=== PATIENT | female | born 1945 | race Caucasian/White ===

== ENCOUNTER 2022-04-04 18:23 | Observation (INO) | payer OTHER, MEDICAID, SELFPAY ==
[2022-04-04] VITALS (18 sets, daily range): BP systolic 138–186; BP diastolic 68–91; PULSE 49–61; RESP 17–18; TEMP 36.4–37; O2SAT 93–100; BMI 28.6; BMI 27.1
--- NOTE | 2022-04-04 18:30 | DI.RAD.S_ITS ---
PROCEDURE: XR CHEST 1V INDICATIONS: pain TECHNIQUE: One view of the chest was acquired. COMPARISON: None. FINDINGS: Surgical changes and devices: Bilateral breast implants Lungs and pleura: Lungs are clear. No pleural effusions or pneumothorax. Mediastinum: Mediastinal contours appear normal. Heart size is normal. Bones and chest wall: No suspicious bony lesions. Overlying soft tissues appear unremarkable. IMPRESSION: No acute cardiopulmonary abnormality. Dictated by: Tino Lovelace M.D. on 04/04/2022 at 19:14 Approved by: Tino Lovelace M.D. on 04/04/2022 at 19:15
[2022-04-04 18:44] LABS: Add Manual Diff / Slide Review NO; Basophils Absolute Auto 0 /uL (0-100); Basophils Percent Auto 0.7 % (0-2); Eosinophils Absolute Auto 100 /uL (0-450); Eosinophils Percent Auto 2.2 % (2-4); Hematocrit 39.7 % (36-46); Hemoglobin 13.7 g/dL (12.0-16.0); Lymphocytes Absolute Auto 2000 /uL (1100-4500); Lymphocytes Percent Auto 32.1 % (25-40); Mean Corpuscular HGB Conc 34.6 % (30-36); Mean Corpuscular Hemoglobin 33.1 PG (26-34); Mean Corpuscular Volume 95.8 fL (80-100); Monocytes Absolute Auto 500 /uL (0-900); Monocytes Percent Auto 7.9 % (3-14); Neutrophils Absolute Auto 3500 /uL (1500-7000); Neutrophils Percent Auto 57.1 % (50-75); Platelet Count 242 X10^3/uL (150-400); Red Blood Cell Count 4.14 X10^6/uL (4.0-5.2); Red Cell Distribution Width 13.2 % (11.6-14.8); White Blood Cell Count 6.2 X10^3/uL (4.5-11.0)
[2022-04-04 18:55] LABS: Lactate (Lactic Acid) 1.1 mmol/L (0.7-2.1)
--- NOTE | 2022-04-04 18:55 | ED.RECABL ---
HPI - Recheck/Abnormal Lab/Rx General Chief Complaint: Recheck/Abnormal Lab/Rx Stated Complaint: abd pain Time Seen by Provider: 04/04/22 18:29 Source: EMS Mode of arrival: EMS History of Present Illness HPI narrative: 76-year-old female former smoker history of dementia and arthritis presents by EMS for evaluation of generalized pain. She is a very poor historian and contributes very little, however family reported to the medics that she has arthritis and they fear that her pain is not being controlled. She denies chest pain or shortness of breath. She denies any abdominal pain but states that her arms and legs hurt all over. She denies any injury or trauma but, as stated that that is about all she can contribute. Sister in law arrives a bit after patient arrival and contributes more to the story now telling us that the pain started in her low back after a ground fall few days ago and is sufficient to prevent her from getting out bed. She is not lost any control bowel or bladder. Related Data Home Medications Medication Instructions Recorded Confirmed furosemide 40 mg tablet (Lasix) 40 mg PO DAILY 04/04/22 04/04/22 ibuprofen 600 mg tablet 600 mg PO Q6H PRN Pain (Scale 04/04/22 04/04/22 Score 4-6) meloxicam 7.5 mg tablet 7.5 mg PO BID 04/04/22 04/04/22 potassium chloride 10 mEq 10 meq PO DAILY 04/04/22 04/04/22 tablet,extended release(part/cryst) vitamin B complex (B 1 tab PO DAILY 04/04/22 04/04/22 Complex-Vitamin B12 tablet) Allergies Allergy/AdvReac Type Severity Reaction Status Date / Time No Known Drug Allergies Allergy Verified 04/04/22 18:31 Review of Systems Review of Systems ROS Unobtainable: Unobtainable due to mental status/LOC Patient History Family History Mother Murder Sister Early onset Alzheimer's dementia Father Myocardial infarction Sister Alive and well Social History household members: family Smoking Status: Former smoker alcohol intake: never Smoking Status: Former smoker Substance Use Type: does not use Exam Narrative Exam Narrative: GENERAL: [76] year old patient appears stated age. Well-developed patient, in mild distress. Pleasantly confused (GCS 14) very poor historian, at baseline per family HEAD: Atraumatic. Normocephalic. EYES: Pupils equal round and reactive. Extraocular motions intact. No scleral icterus. No injection or drainage. ENT: Nose without bleeding, purulent drainage. Throat without erythema, tonsillar hypertrophy or exudate. Airway patent. NECK: Trachea midline. Non tender CARDIOVASCULAR: Regular rate and rhythm without murmurs, gallops, or rubs. RESPIRATORY: Clear to auscultation. Breath sounds equal bilaterally. No wheezes, rales, or rhonchi. GASTROINTESTINAL: Abdomen soft, non-tender, nondistended. EXTREMITIES: No edema or joint tenderness. BACK: twister frame tender but free of any obvious external abnormalities. Patient exam notes decreased range of motion and muscle spasm, but no CVA tenderness, or vertebral point tenderness. There are no symptoms of cauda equina such as saddle anesthesia, and decreased reflexes, decreased sensation or strength. NEURO: Cranial nerves 2-12 grossly intact SKIN: No rash or erythema of visible areas Initial Vital Signs Initial Vital Signs: Vital Signs Temperature 98.6 F 04/04/22 18:24 Pulse Rate 59 L 04/04/22 18:24 Respiratory Rate 18 04/04/22 18:24 Blood Pressure 149/73 H 04/04/22 18:24 Pulse Oximetry 98 04/04/22 18:24 Oxygen Delivery Method 04/04/22 18:24 Course Orders Ordered: ED Orders 04/04/22 21:41 COVID19 -Nasal RAPID/Pre-Proc Stat Acetaminophen (Acetaminophen 325 Mg Tablet) 650 mg PO Q6H [facility] Last Admin: 04/05/22 04:09 Dose: 650 mg Documented By: Admin: 04/04/22 23:48 Dose: 650 mg Documented By: JARVIS Hydrocodone Bitart/Acetaminophen (Hydrocodone/Acet 5/325 Tablet) 1 tab PO Q6HR PRN PRN Reason: Pain, Severe (7-10) Last Admin: 04/04/22 23:47 Dose: 1 tab Documented By: JARVIS Docusate Sodium (Docusate 100 Mg Capsule) 100 mg PO BID [facility] Last Admin: 04/04/22 23:47 Dose: 100 mg Documented By: JARVIS Enoxaparin Sodium (Enoxaparin 40 Mg/0.4 Ml Syringe) 40 mg SUBCUT DAILY [facility] Sodium Chloride (Normal Saline 0.9%) 1,000 mls @ 100 mls/hr IV CONT NAHID Last Infusion: 04/05/22 03:19 Dose: 100 mls/hr Documented By: Infusion: 04/04/22 23:47 Dose: 0 mls/hr Documented By: Admin: 04/04/22 23:46 Dose: 100 mls/hr Documented By: JARVIS Naloxone HCl (Naloxone 0.4 Mg/Ml Vial) 0.2 mg IV Q2MIN PRN PRN Reason: Opiate Reversal Ondansetron HCl (Ondansetron 4 Mg/2 Ml Inj) 4 mg IV Q4HR PRN PRN Reason: Nausea And Vomiting Tramadol HCl (Tramadol 50 Mg Tablet) 50 mg PO TID PRN PRN Reason: Pain, Moderate (4-6) Last Admin: 04/05/22 05:23 Dose: 50 mg Documented By: JARVIS Discontinued Medications Sodium Chloride (Normal Saline 0.9%) 1,000 mls @ 1,000 mls/hr IV BOLUS ONE Stop: 04/04/22 19:28 Last Infusion: 04/04/22 21:12 Dose: 0 mls/hr Documented By: Admin: 04/04/22 19:25 Dose: 1,000 mls/hr Documented By: STEPHANE Potassium Chloride (Potassium Chloride 20 Meq Tab) 40 meq PO NOW ONE Stop: 04/05/22 01:23 Last Admin: 04/05/22 02:21 Dose: 40 meq Documented By: JARVIS Consultations Consultation #1: Discussed with on-call orthopedist (Dr. Dwyer), she has reviewed images, suggests no obvious surgical need, happy to be involved in consultation, Dr. Arzola is in town Consultation #2: hospitalist happy to accept Vital Signs Vital signs: Vital Signs - 8 hr 04/04/22 18:24 04/04/22 19:28 04/04/22 19:29 Temperature 98.6 F Pulse Rate 59 L Respiratory Rate 18 Blood Pressure 149/73 H 184/77 H Pulse Oximetry 98 99 Oxygen Delivery Method Room Air Room Air 04/04/22 19:29 04/04/22 19:30 04/04/22 20:03 Temperature Pulse Rate 53 L 53 L 54 L Respiratory Rate Blood Pressure Pulse Oximetry 99 99 100 Oxygen Delivery Method Room Air Room Air 04/04/22 20:30 04/04/22 20:56 04/04/22 20:56 Temperature Pulse Rate 58 L Respiratory Rate Blood Pressure 186/91 H Pulse Oximetry 100 93 Oxygen Delivery Method Room Air Room Air 04/04/22 21:00 04/04/22 21:01 04/04/22 21:01 Temperature Pulse Rate 49 L 50 L Respiratory Rate Blood Pressure 179/72 H Pulse Oximetry 100 100 Oxygen Delivery Method Room Air Room Air MDM - Recheck/Abnormal Lab/Rx Lab Data 04/04/22 18:38 04/04/22 18:38 Labs: Lab Results 04/04/22 04/04/22 04/04/22 Range/Units 18:38 18:38 18:38 WBC 6.2 (4.5-11.0) X10^3/uL RBC 4.14 (4.0-5.2) X10^6/uL Hgb 13.7 (12.0-16.0) g/dL Hct 39.7 (36-46) % MCV 95.8 (80-100) fL MCH 33.1 (26-34) PG MCHC 34.6 (30-36) % RDW 13.2 (11.6-14.8) % Plt Count 242 (150-400) X10^3/uL Neut % (Auto) 57.1 (50-75) % Lymph % (Auto) 32.1 (25-40) % Blair % (Auto) 7.9 (3-14) % Eos % (Auto) 2.2 (2-4) % Baso % (Auto) 0.7 (0-2) % Neut # (Auto) 3500 (6301-8268) /uL Lymph # (Auto) 2000 (6593-0480) /uL Blair # (Auto) 500 (0-900) /uL Eos # (Auto) 100 (0-450) /uL Baso # (Auto) 0 (0-100) /uL PT (10.1-12.7) SECONDS INR (0.9-1.3) Sodium 141 (137-145) mmol/L Potassium 3.2 L (3.4-5.1) mmol/L Chloride 106 (98-107) mmol/L Carbon Dioxide 26 (22-32) mmol/L BUN 22 H (7-17) mg/dL Creatinine 1.00 (0.52-1.04) mg/dL Estimated GFR 58 L (>60) mL/min BUN/Creatinine Ratio 22.0 (6-22) Glucose 107 (80-110) mg/dL Lactate 1.1 (0.7-2.1) mmol/L Calcium 9.0 (8.4-10.2) mg/dL Magnesium 2.2 (1.6-2.3) mg/dL Total Bilirubin 1.0 (0.2-1.3) mg/dL AST 27 (14-36) IU/L ALT 19 (<35) IU/L Alkaline Phosphatase 117 (38-126) U/L Total Creatine Kinase 216 H (30-135) U/L CK-MB (CK-2) 1.45 (<2.37) ng/mL CK-MB (CK-2) Rel Index 0.7 L (1.5-5.0) % Troponin I < 0.012 (0.01-0.034) ng/mL NT-Pro-B Natriuret Pep 448 (<450) pg/mL Total Protein 7.5 (6.3-8.2) g/dL Albumin 4.0 (3.5-5.0) g/dL Globulin 3.5 (1.7-4.1) g/dL Albumin/Globulin Ratio 1.1 (1.0-2.8) Lipase 132 (23-300) U/L Urine RBC (0-5/HPF) Urine WBC (0-5/HPF) Ur Squamous Epith Cells (0-5/HPF) Amorphous Sediment Urine Bacteria (None) Ur Culture Indicated? SARS-CoV-2 (PCR) (Negative) 04/04/22 04/04/22 04/04/22 Range/Units 18:38 19:32 21:41 WBC (4.5-11.0) X10^3/uL RBC (4.0-5.2) X10^6/uL Hgb (12.0-16.0) g/dL Hct (36-46) % MCV (80-100) fL MCH (26-34) PG MCHC (30-36) % RDW (11.6-14.8) % Plt Count (150-400) X10^3/uL Neut % (Auto) (50-75) % Lymph % (Auto) (25-40) % Blair % (Auto) (3-14) % Eos % (Auto) (2-4) % Baso % (Auto) (0-2) % Neut # (Auto) (3495-8753) /uL Lymph # (Auto) (3288-8843) /uL Blair # (Auto) (0-900) /uL Eos # (Auto) (0-450) /uL Baso # (Auto) (0-100) /uL PT 11.9 (10.1-12.7) SECONDS INR 1.0 (0.9-1.3) Sodium (137-145) mmol/L Potassium (3.4-5.1) mmol/L Chloride (98-107) mmol/L Carbon Dioxide (22-32) mmol/L BUN (7-17) mg/dL Creatinine (0.52-1.04) mg/dL Estimated GFR (>60) mL/min BUN/Creatinine Ratio (6-22) Glucose (80-110) mg/dL Lactate (0.7-2.1) mmol/L Calcium (8.4-10.2) mg/dL Magnesium (1.6-2.3) mg/dL Total Bilirubin (0.2-1.3) mg/dL AST (14-36) IU/L ALT (<35) IU/L Alkaline Phosphatase (38-126) U/L Total Creatine Kinase (30-135) U/L CK-MB (CK-2) (<2.37) ng/mL CK-MB (CK-2) Rel Index (1.5-5.0) % Troponin I (0.01-0.034) ng/mL NT-Pro-B Natriuret Pep (<450) pg/mL Total Protein (6.3-8.2) g/dL Albumin (3.5-5.0) g/dL Globulin (1.7-4.1) g/dL Albumin/Globulin Ratio (1.0-2.8) Lipase (23-300) U/L Urine RBC None seen (0-5/HPF) Urine WBC None seen (0-5/HPF) Ur Squamous Epith Cells 1-5 /hpf (0-5/HPF) Amorphous Sediment 1+ Urine Bacteria None seen (None) Ur Culture Indicated? Cult not indicated SARS-CoV-2 (PCR) Negative (Negative) Urine Dip Bedside Urine Glucose Negative Bedside Urine Bilirubin - Negative Bedside Urine Ketone +/- 5 Urine Specific Mckenzie 1.015 Bedside Urine Occult Blood - Negative Bedside Urine pH 7.0 Bedside Urine Protein +/- 15 Bedside Urine Urobilinogen - Negative Bedside Urine Nitrite - Negative Bedside Urine Leukocytes - Negative Esterase MDM Narrative Medical decision making narrative: CC: 76-year-old female with multiple falls and intractable back pain Complicating co-morbidities: Age Data collected from: Patient and independent history Medical records reviewed: No prior notes Differential considered, but not limited to: Lumbar fracture, hip fracture, pelvic fracture versus other Exam documented above, pertinent findings include: Low back pain, no saddle anesthesia, no measurable lower extremity weakness, no depressed reflexes, no obvious shortening or rotation over Kathy Lab Test results independently reviewed as above. Pertinent findings: No significant lab abnormalities requiring intervention Imaging studies independently reviewed: Lumbar fracture with 65-70% loss of height at L2 with some bony fragments causing severe canal stenosis Consultations: Ortho (Reymundo) and Hospitalist - see details above Treatments: Pain control Patient with multiple falls and newly discovered lumbar fracture with height loss and severe central stenosis with intractable pain in the absence of saddle anesthesia, lower extremity weakness numbness, tingling, decreased reflexes or other evidence of need for emergent neurosurgical intervention. Patient lives at home with family and has become a significant risk to her own health as evidenced by her multiple falls and now severe lumbar fracture. Family has been unable to get her out of bed or help keep her comfortable, they have their own medical problems and are at risk to become injured themselves. Patient's pain is unable to be controlled and she will require hospitalization for pain management, likely PT evaluation, more in-depth orthopedic evaluation for stabilization and possible sniff placement Discharge Plan Departure Patient Disposition: Admitted as Observation Clinical Impression: Lumbar compression fracture Admit Date/Time: 04/04/22 21:53 Admit Provider: Sofía Castro
[2022-04-04 18:56] LABS: Alanine Aminotransferase 19 IU/L (<35); Albumin Globulin Ratio 1.1 (1.0-2.8); Alkaline Phosphatase 117 U/L (38-126); Aspartate Aminotransferase 27 IU/L (14-36); Blood Urea Nitrogen 22 mg/dL (7-17); Carbon Dioxide 26 mmol/L (22-32); Chloride 106 mmol/L (98-107); Creatine Kinase 216 U/L (30-135); Estimated Glomerular Filt Rate 58 mL/min (>60); Globulin 3.5 g/dL (1.7-4.1); Glucose 107 mg/dL (80-110); HEMOLYSIS < 15 (0-50); Lipase 132 U/L (23-300); Magnesium 2.2 mg/dL (1.6-2.3); Potassium 3.2 mmol/L (3.4-5.1); Sodium 141 mmol/L (137-145); Total Protein 7.5 g/dL (6.3-8.2)
[2022-04-04 19:08] LABS: NT-proBNP (BNP-Adult 18+) 448 pg/mL (<450); Troponin I < 0.012 ng/mL (0.01-0.034)
[2022-04-04 19:11] LABS: CKMB % Relative Index 0.7 % (1.5-5.0); Creatine Kinase MB 1.45 ng/mL (<2.37)
[2022-04-04] MEDS: SODIUM CHLORIDE 0.9% 1,000 ML 1000 ML IV (19:25)
--- NOTE | 2022-04-04 19:47 | DI.CT.S_ITS ---
PROCEDURE: CT PEL WO CON INDICATIONS: fall with low back, left hip pain TECHNIQUE: Noncontrast 3 mm axial sections acquired through the bony pelvis, with coronal and sagittal reformatting. COMPARISON: [facility], CT, CT LUMBAR SPINE WO CON, 04/04/2022, 19:57. FINDINGS: Image quality: There is mild motion artifact Bones: No acute fracture or dislocation in the pelvis. There is mild to moderate joint space narrowing in the hips bilaterally with collar osteophytosis. There is mild superior endplate scalloping within the visualized L4 and L5 vertebral bodies. Moderate degenerative disc disease demonstrated at L5-S1 as well as moderate facet arthropathy in the lower lumbar spine. Soft tissues: No discrete hematoma collections. No intraperitoneal free fluid within the visualized pelvis. There are bilateral cysts within the pelvis measuring up to 3.7 cm on the left and 2.9 cm on the right. IMPRESSION: 1. No acute fracture or dislocation in the pelvis. 2. Mild to moderate degenerative changes in the hips bilaterally. 3. Bilateral nonspecific cysts within the pelvis likely represent ovarian or paraovarian cysts. Dictated by: Trent Amaya M.D. on 04/04/2022 at 20:58 Approved by: Trent Amaya M.D. on 04/04/2022 at 21:01
--- NOTE | 2022-04-04 19:47 | DI.CT.S_ITS ---
PROCEDURE: CT LUMBAR SPINE WO CON INDICATIONS: fall with midline low back pain TECHNIQUE: Noncontrast 3 mm thick sections acquired from the T12 level to the sacrum. Sagittal and coronal reformats were constructed. For radiation dose reduction, the following was used: automated exposure control. COMPARISON: [facility], CT, CT PEL WO CON, 04/04/2022, 19:57. FINDINGS: Image quality: There is motion artifact limiting evaluation. Bones: There are 5 lumbar type vertebrae with a rudimentary rib on the right at L1. There is a compression fracture of the L3 vertebral body which appears acute or subacute with approximately 65-70% loss of height. There is associated ill-defined sclerosis throughout the L3 vertebral body. There is mild posterior displacement along the superior and inferior endplate with associated severe spinal canal narrowing at L3-L4. There are also mild superior endplate compression deformities of the T12 vertebral body with approximately 20% loss of height and the L2 vertebral body with approximately 40% loss of height. These also demonstrate slight posterior displacement along the superior endplates with associated moderate spinal canal narrowing at L1-L2 and mild narrowing at T11-T12. Mild superior endplate scalloping also demonstrated at L1, L4, and L5. There is multilevel degenerative disc disease throughout the lumbar spine including moderate degeneration at L5-S1 with endplate sclerosis and osteophytosis as well as vacuum disc phenomenon. Vacuum disc phenomenon also demonstrated at L3-L4. There is moderate facet arthropathy in the lower lumbar spine. Soft tissues: No retroperitoneal hematomas. There are bilateral cysts within the visualized pelvis, measuring up to 3.9 cm on the left and 2.7 cm on the right. Visualized aorta is normal in caliber. IMPRESSION: 1. Acute or subacute compression fracture of the L3 vertebral body with associated posterior displacement of fracture components and severe spinal canal narrowing at L3-L4. 2. Diffuse heterogeneous sclerosis within the L3 vertebral body may reflect sequelae of an acute compression fracture but an underlying sclerotic lesion cannot be excluded. Consider follow-up evaluation with MRI if clinically indicated. 3. Additional milder compression deformities throughout the lumbar spine as described including associated moderate spinal canal narrowing at L1-L2. 4. Multilevel degenerative disc disease most prominent at L5-S1 as well as moderate facet arthropathy in the lower lumbar spine. 5. Bilateral cysts within the visualized pelvis are nonspecific but may represent ovarian or paraovarian cysts. Dictated by: Trent Amaya M.D. on 04/04/2022 at 20:49 Approved by: Trent Amaya M.D. on 04/04/2022 at 20:58
[2022-04-04 20:31] LABS: Amorphous Sediment Urine 1+; Bacteria Urine None Seen; Culture Indicated Urine Cult Not Indicated; RBC Urine None Seen (0-5/HPF); Squamous Epithelial Cell Urine 1-5 /HPF (0-5/HPF); WBC Urine None Seen (0-5/HPF)
[2022-04-04 22:00] LABS: COVID19 -Nasal RAPID Negative (Negative)
[2022-04-04 22:19] LABS: Prothrombin Time 11.9 SECONDS (10.1-12.7)
--- NOTE | 2022-04-04 23:02 | PC.NURSE ---
Report given to Brandt SLAUGHTER on acute care floor. Patient is a fall risk with 3 falls the last couple of months, the last on was 6 days ago per report of [id number]. This was communicated to Brandt SLAUGHTER, the receiving nurse.
[2022-04-04] MEDS: SODIUM CHLORIDE 0.9% 1,000 ML 100 ML IV (23:46)
[2022-04-04] MEDS: HYDROCODONE/ACET 5/325 TABLET 1 TAB PO (23:47)
[2022-04-04] MEDS: DOCUSATE 100 MG CAPSULE PO (23:47)
[2022-04-04] MEDS: ACETAMINOPHEN 325 MG TABLET 650 MG PO (23:48)
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
[2022-04-05] MEDS: POTASSIUM CHLORIDE 20 MEQ TAB 40 MEQ PO ×2 (02:21→11:35)
[2022-04-05] MEDS: ACETAMINOPHEN 325 MG TABLET 650 MG PO ×4 (04:09→21:43)
[2022-04-05 04:33] VITALS: BP 128/69; PULSE 64; RESP 18; TEMP 36.6; O2SAT 97
[2022-04-05 04:50] LABS: Add Manual Diff / Slide Review NO; Basophils Absolute Auto 100 /uL (0-100); Basophils Percent Auto 0.8 % (0-2); Eosinophils Absolute Auto 200 /uL (0-450); Eosinophils Percent Auto 3.7 % (2-4); Hematocrit 36.7 % (36-46); Hemoglobin 12.6 g/dL (12.0-16.0); Lymphocytes Absolute Auto 2300 /uL (1100-4500); Mean Corpuscular HGB Conc 34.4 % (30-36); Mean Corpuscular Hemoglobin 33.5 PG (26-34); Mean Corpuscular Volume 97.3 fL (80-100); Monocytes Absolute Auto 500 /uL (0-900); Monocytes Percent Auto 7.8 % (3-14); Neutrophils Absolute Auto 3500 /uL (1500-7000); Neutrophils Percent Auto 52.7 % (50-75); Platelet Count 203 X10^3/uL (150-400); Red Blood Cell Count 3.77 X10^6/uL (4.0-5.2); Red Cell Distribution Width 12.9 % (11.6-14.8); White Blood Cell Count 6.6 X10^3/uL (4.5-11.0)
[2022-04-05 05:13] LABS: Alanine Aminotransferase 18 IU/L (<35); Albumin 3.4 g/dL (3.5-5.0); Albumin Globulin Ratio 1.1 (1.0-2.8); Alkaline Phosphatase 85 U/L (38-126); Aspartate Aminotransferase 28 IU/L (14-36); BUN Creatinine Ratio 24.4 (6-22); Bilirubin Total 0.8 mg/dL (0.2-1.3); Blood Urea Nitrogen 22 mg/dL (7-17); Calcium 8.2 mg/dL (8.4-10.2); Carbon Dioxide 25 mmol/L (22-32); Chloride 106 mmol/L (98-107); Estimated Glomerular Filt Rate > 60 mL/min (>60); Globulin 3.1 g/dL (1.7-4.1); Glucose 122 mg/dL (80-110); HEMOLYSIS < 15 (0-50); Magnesium 2.2 mg/dL (1.6-2.3); Potassium 3.1 mmol/L (3.4-5.1); Sodium 140 mmol/L (137-145); Total Protein 6.5 g/dL (6.3-8.2)
[2022-04-05] MEDS: TRAMADOL 50 MG TABLET PO (05:23)
--- NOTE | 2022-04-05 06:54 | P.CONS_ITS ---
History of Present Illness Consult details Date Patient Seen: 04/05/22 Time Patient Seen: 06:54 Chief complaint: abd pain Requesting provider: Pranay Plaza Narrative: 76-year-old female with history of homelessness and dementia now living with family here for the last couple months. Poor historian. Brought in today by family for back pain and family's inability to continually care for her due to their own serious medical conditions. States patient has not really been able to get out of bed for a few days. Patient states she thinks she has not gotten out of bed much for about a month and may have fallen about a month ago. ER and hospitalist notes from a family report believe a fall may have been a few days ago. Patient states she has lots of falls. She complains of soreness in her back but mostly a feeling of having to urinate but states she has trouble doing it but thinks she might be able to write now. She is unable to provide really any other history. Thinks she may have had compression fractures in her back before ?probably? can not give any details. States some numbness right around her right knee otherwise no numbness and tingling Meds Home Medications and Allergies Home Medications Medication Instructions Recorded Confirmed Type furosemide 40 mg tablet (Lasix) 40 mg PO DAILY 04/04/22 04/04/22 History ibuprofen 600 mg tablet 600 mg PO Q6H PRN Pain (Scale 04/04/22 04/04/22 History Score 4-6) meloxicam 7.5 mg tablet 7.5 mg PO BID 04/04/22 04/04/22 History potassium chloride 10 mEq 10 meq PO DAILY 04/04/22 04/04/22 History tablet,extended release(part/cryst) vitamin B complex (B 1 tab PO DAILY 04/04/22 04/04/22 History Complex-Vitamin B12 tablet) Allergies Allergy/AdvReac Type Severity Reaction Status Date / Time No Known Drug Allergies Allergy Verified 04/04/22 18:31 Review of Systems Review of Systems Narrative: No fevers or chills otherwise limited review of systems due to a poor historian. ROS: Yes unobtainable due to mental condition Exam Vital Signs (past 8 hours): - 04/04/22 23:00 04/04/22 23:01 04/04/22 23:08 Temperature 97.6 F Pulse Rate 59 L 54 L Respiratory Rate 17 Blood Pressure 154/68 H 169/71 H Pulse Oximetry 97 100 Oxygen Delivery Method Room Air Oxygen Flow Rate 0 04/05/22 04:33 Temperature 97.8 F Pulse Rate 64 Respiratory Rate 18 Blood Pressure 128/69 Pulse Oximetry 97 Oxygen Delivery Method Oxygen Flow Rate 0 Oxygen Delivery Method Room Air Oxygen Flow Rate 0 Narrative Exam Narrative: General exam alert oriented to person and place can not provide much history. Normocephalic atraumatic Heart regular rate and rhythm Breathing unlabored on room air Moving bilateral upper extremities without limitation no deformities. Normal strength wrist flexors wrist extensors biceps and triceps. Flexes and extends neck without pain. Spine exam. Mild tenderness around lower lumbar spine and paraspinal. No step- offs. No focal bruising or extreme pain. Patient is able to log roll herself in bed Lower extremities demonstrates normal strength quadriceps hamstrings gastrocs tibialis anterior and EHL. Complained of some numbness right around the kneecap on the right knee no focal nerve distribution. Otherwise sensation intact to light touch all distributions. Palpable pulses. Negative logroll. Objective Imaging CT scan pelvis: My impression: No hip fracture Radiologist's impression: IMPRESSION: 1. No acute fracture or dislocation in the pelvis. 2. Mild to moderate degenerative changes in the hips bilaterally. 3. Bilateral nonspecific cysts within the pelvis likely represent ovarian or paraovarian cysts. Dictated by: Trent Amaya M.D. on 04/04/2022 at 20:58 Approved by: Trent Amaya M.D. on 04/04/2022 at 21:[address]: My impression: Lumbar CT scan with L3 subacute vertebral body fracture greater than 50% height loss , canal stenosis, L5-S1 spondylosis Radiologist's impression: There is a compression fracture of the L3 vertebral body which appears acute or subacute with approximately 65-70% loss of height. There is associated ill-defined sclerosis throughout the L3 vertebral body. There is mild posterior displacement along the superior and inferior endplate with associated severe spinal canal narrowing at L3-L4. There are also mild superior endplate compression deformities of the T12 vertebral body with approximately 20% loss of height and the L2 vertebral body with approximately 40% loss of height. These also demonstrate slight posterior displacement along the superior endplates with associated moderate spinal canal narrowing at L1-L2 and mild narrowing at T11-T12. Mild superior endplate scalloping also demonstrated at L1, L4, and L5. There is multilevel degenerative disc disease throughout the lumbar spine including moderate degeneration at L5-S1 with endplate sclerosis and osteophytosis as well as vacuum disc phenomenon. Vacuum disc phenomenon also demonstrated at L3-L4. There is moderate facet arthropathy in the lower lumbar spine. 1. Acute or subacute compression fracture of the L3 vertebral body with associated posterior displacement of fracture components and severe spinal canal narrowing at L3- L4. 2. Diffuse heterogeneous sclerosis within the L3 vertebral body may reflect sequelae of an acute compression fracture but an underlying sclerotic lesion cannot be excluded. Consider follow-up evaluation with MRI if clinically indicated. 3. Additional milder compression deformities throughout the lumbar spine as described including associated moderate spinal canal narrowing at L1-L2. 4. Multilevel degenerative disc disease most prominent at L5-S1 as well as moderate facet arthropathy in the lower lumbar spine. 5. Bilateral cysts within the visualized pelvis are nonspecific but may represent ovarian or paraovarian cysts. Dictated by: Trent Amaya M.D. on 04/04/2022 at 20:49 Approved by: Trent Amaya M.D. on 04/04/2022 at 20:58 Soft Labs 04/05/22 04:05 04/05/22 04:05 Labs: Laboratory Results - last 24 hr 04/04/22 04/04/22 04/04/22 18:38 18:38 18:38 WBC 6.2 RBC 4.14 Hgb 13.7 Hct 39.7 MCV 95.8 MCH 33.1 MCHC 34.6 RDW 13.2 Plt Count 242 Neut % (Auto) 57.1 Lymph % (Auto) 32.1 [place] % (Auto) 7.9 Eos % (Auto) 2.2 Baso % (Auto) 0.7 Neut # (Auto) 3500 Lymph # (Auto) 2000 [place] # (Auto) 500 Eos # (Auto) 100 Baso # (Auto) 0 PT INR Sodium 141 Potassium 3.2 L Chloride 106 Carbon Dioxide 26 BUN 22 H Creatinine 1.00 Estimated GFR 58 L BUN/Creatinine Ratio 22.0 Glucose 107 Lactate 1.1 Calcium 9.0 Magnesium 2.2 Total Bilirubin 1.0 AST 27 ALT 19 Alkaline Phosphatase 117 Total Creatine Kinase 216 H CK-MB (CK-2) 1.45 CK-MB (CK-2) Rel Index 0.7 L Troponin I < 0.012 NT-Pro-B Natriuret Pep 448 Total Protein 7.5 Albumin 4.0 Globulin 3.5 Albumin/Globulin Ratio 1.1 Lipase 132 Urine RBC Urine WBC Ur Squamous Epith Cells Amorphous Sediment Urine Bacteria Ur Culture Indicated? SARS-CoV-2 (PCR) 04/04/22 04/04/22 04/04/22 18:38 19:32 21:41 WBC RBC Hgb Hct MCV MCH MCHC RDW Plt Count Neut % (Auto) Lymph % (Auto) [place] % (Auto) Eos % (Auto) Baso % (Auto) Neut # (Auto) Lymph # (Auto) [place] # (Auto) Eos # (Auto) Baso # (Auto) PT 11.9 INR 1.0 Sodium Potassium Chloride Carbon Dioxide BUN Creatinine Estimated GFR BUN/Creatinine Ratio Glucose Lactate Calcium Magnesium Total Bilirubin AST ALT Alkaline Phosphatase Total Creatine Kinase CK-MB (CK-2) CK-MB (CK-2) Rel Index Troponin I NT-Pro-B Natriuret Pep Total Protein Albumin Globulin Albumin/Globulin Ratio Lipase Urine RBC None seen Urine WBC None seen Ur Squamous Epith Cells 1-5 /hpf Amorphous Sediment 1+ Urine Bacteria None seen Ur Culture Indicated? Cult not indicated SARS-CoV-2 (PCR) Negative 04/05/22 04/05/22 04:05 04:05 WBC 6.6 RBC 3.77 L Hgb 12.6 Hct 36.7 MCV 97.3 MCH 33.5 MCHC 34.4 RDW 12.9 Plt Count 203 Neut % (Auto) 52.7 Lymph % (Auto) 35.0 [place] % (Auto) 7.8 Eos % (Auto) 3.7 Baso % (Auto) 0.8 Neut # (Auto) 3500 Lymph # (Auto) 2300 [place] # (Auto) 500 Eos # (Auto) 200 Baso # (Auto) 100 PT INR Sodium 140 Potassium 3.1 L Chloride 106 Carbon Dioxide 25 BUN 22 H Creatinine 0.90 Estimated GFR > 60 BUN/Creatinine Ratio 24.4 H Glucose 122 H Lactate Calcium 8.2 L Magnesium 2.2 Total Bilirubin 0.8 AST 28 ALT 18 Alkaline Phosphatase 85 Total Creatine Kinase CK-MB (CK-2) CK-MB (CK-2) Rel Index Troponin I NT-Pro-B Natriuret Pep Total Protein 6.5 Albumin 3.4 L Globulin 3.1 Albumin/Globulin Ratio 1.1 Lipase Urine RBC Urine WBC Ur Squamous Epith Cells Amorphous Sediment Urine Bacteria Ur Culture Indicated? SARS-CoV-2 (PCR) [facility] Family History Mother Murder Sister Early onset Alzheimer's dementia Father Myocardial infarction Sister Alive and well Social History household members: family Tobacco & Substance Use Smoking Status: Former smoker alcohol intake: never Assessment & Plan Assessment and plan (1) Lumbar stenosis: Status: Acute (2) Lumbar compression fracture: Status: Acute Plan Acute or subacute L3 compression fracture spinal stenosis. No focal neurologic symptoms on examination demonstrates good sensory and motor strength. Does have a sensation of having to urinate no complaints of incontinence. Has been unable to be mobilized anxious and vertebral body likely reflect compression fracture. Recommend MRI to evaluate spinal stenosis, out of bed as tolerated, LSO for comfort if unable to be mobilized by PT alone. Avoid bending lifting or twisting. Pain management COVID-19 COVID-19 status: Negative Time Spent With Patient Time with patient: less than 30 minutes Critical Care time: I spent a total of [] minutes of critical care time on this patient's care today; this time is exclusive of procedural time.
--- NOTE | 2022-04-05 07:11 | DI.MRI.S_ITS ---
PROCEDURE: MR LUMBAR SPINE WO CON INDICATIONS: L3 fracture, spinal stenosis TECHNIQUE: Noncontrast sagittal T1 spin echo and T2 fast echo, sagittal STIR, and T2 fast spin echo through the lumbar spine. In cases with scoliosis, additional coronal T2 fast spin echo may be performed. COMPARISON: [facility], CT, CT LUMBAR SPINE WO CON, 04/04/2022, 19:57. FINDINGS: Image quality: Excellent. Alignment and Curvature: There is normal bony alignment. Bone Marrow: Acute moderate L3 compression fracture with approximately 65% midportion vertebral body height loss. Mild inferior bony retropulsion. Acute mild superior endplate compression fracture of L3 with approximately 20% midportion vertebral body height loss. Old compressions of T12 and L2. Spinal Cord: Conus medullaris terminates at the L1-L2 level. Visualized cord demonstrates normal signal and size. Paraspinous Soft Tissues: No paravertebral masses. T12-L1: No canal stenosis or foraminal stenosis. L1-L2: Chronic L2 compression with mild superior endplate posterior retropulsion. Mild canal stenosis. Mild bilateral foraminal stenosis. L2-L3: No canal stenosis. Eezm-ho-pcpbtjij bilateral foraminal stenosis. The L3-L4: There is mild bony retropulsion from a L3 compression fracture. The amount of bony retropulsion is only approximately 3 mm. This contributes to multifactorial canal stenosis secondary to disc bulge and facet and ligament hypertrophy, which is moderate. Moderate bilateral foraminal narrowing with bilateral flattening deformity on the exiting L3 nerve roots. L4-L5: Disc bulge and facet and ligament hypertrophy result in moderate canal stenosis. Mild bilateral foraminal narrowing. L5-S1: Disc bulge and facet and ligament hypertrophy result in moderate canal stenosis. Moderate right foraminal narrowing with flattening deformity on the exiting right L5 nerve root. Mild left foraminal narrowing. IMPRESSION: 1. The patient has severe osteoporosis with multiple acute and chronic compression fractures. 2. There is a moderate acute L3 compression and mild acute L4 compression. 3. There is multilevel canal stenosis present. Bony retropulsion at L3-L4 mildly contributes to moderate canal stenosis at this level. Comment: DEXA bone densitometry may be helpful as a baseline for consideration of potential bone building medication treatment. Dictated by: Gaurav Hussein M.D. on 04/05/2022 at 10:58 Approved by: Gaurav Hussein M.D. on 04/05/2022 at 11:07
[2022-04-05 08:00] VITALS: BP 127/69; PULSE 61; RESP 16; TEMP 36.4; O2SAT 97
[2022-04-05] MEDS: ENOXAPARIN 40 MG/0.4 ML SYRINGE SUBCUT (08:50)
[2022-04-05] MEDS: DOCUSATE 100 MG CAPSULE PO ×2 (08:50→21:43)
--- NOTE | 2022-04-05 11:02 | PT.IIE ---
Current Diagnoses Spinal stenosis, lumbar region without neurogenic claudication (04/04/22) Wedge compression fracture of unspecified lumbar vertebra, initial encounter for closed fracture (04/04/22) Physical Therapy Inpatient Evaluation/Re-Eval M1 PT/OT-IP Prior Functional Status Start: 04/05/22 14:02 Freq: NEEDED Status: Active Protocol: Document 04/05/22 11:02 AB (Rec: 04/05/22 14:18 AB [id number]) Medical Review Prior Functional Status Medical History Reviewed Yes Communication able to make needs known Mobility and Gait pt is not a very good historian: stated that she is independent with all mobilities and ambulation without AD Social History Household Members family Living Arrangements House Home Environment Standard Height Toilet,Walk in Shower,Tub/Shower Home Equipment Hand Held Shower,Grab Bars Near Toilet,Grab Bars In Shower Additional Social History Comment per pt: she lives in a facility and has her own apartment with 1 flight of steps to get into her apartment. per nurse: pt lives with her brother and [id number] M2 PT-IP Current Condition Start: 04/05/22 14:02 Freq: NEEDED Status: Active Protocol: Document 04/05/22 11:02 AB (Rec: 04/05/22 14:18 AB [id number]) Physical Therapy Current Condition Current Condition Evaluation Date 04/05/22 Treatment Diagnosis fall; L3 compression fx; difficulty in walking Onset Date 04/04/22 M3 PT-IP Subjective Start: 04/05/22 14:02 Freq: NEEDED Status: Active Protocol: Document 04/05/22 11:02 AB (Rec: 04/05/22 14:18 AB [id number]) Subjective Physical Therapy Visit Type Type Initial Evaluation Visit Start Time 11:02 Visit Stop Time 11:58 Total Visit Minutes 56 Number of CELL MANAGER Visits 0 Therapy Pain Assessment Pain When Pain Assessed During Mobility Pain Present Pain Present Pain Reported Location Lower Back Scale Used pain scale not stated Pain Management Techniques Distraction,Modification of Treatment,Re-positioning, Timing of Activity with Medications M4 PT-IP Mobility and Gait Start: 04/05/22 14:02 Freq: NEEDED Status: Active Protocol: Document 04/05/22 11:02 AB (Rec: 04/05/22 14:18 AB [id number]) PT-Bed Mobility Assessment Rolling Type of Rolling Log Rolling Level of Assist Moderate Assistance Supine to Sit Supine to Sit Maximum Assistance Sit to Supine Sit to Supine Standby Assistance PT-Transfer Assessment Comments Mobility Comments pt with dx dementia and has decrease safety awareness. educated on back precautions and log roll bed mobility and completed with max A and max cues. able to sit on EOB CGA. refused to move to the EOB and stated that it is too much for her to do. informed pt that she will just try to be able to sit on EOB for now but pt refused and lie back down in bed. pt getting agitated and just positioned pt back in bed. call light and table place within reach. Per Dr. Dwyer's note: LSO brace if pt is unable to move with PT. pt able to move with assistance but unable to do much due to resistance and part of this is due to decrease cognition. will continue to assess appropriateness for LSO brace but at this time pt is not appropriate. PT-Balance Assessment Sitting Balance and Reactions Static Sitting Balance Ability Good Dynamic Sitting Balance Ability Fair M5 PT-IP Objective Assessments Start: 04/05/22 14:02 Freq: NEEDED Status: Active Protocol: Document 04/05/22 11:02 AB (Rec: 04/05/22 14:18 [id number]) Orientation Orientation/Cognition Level of Alertness Alert Orientation Name Safety Awareness Decreased Safety Awareness Memory Description Short Term Impaired,Light Rail Transit Operator Impaired Gross Range of Motion Lower Extremity ROM Assessment Within Functional Limits Strength Lower Extremity Strength Hip 4-/5 Knee 4-/5 Sensation Assessment Sensation Gross Sensation WNL Muscle Tone Muscle Tone WNL Yes M6 PT-IP Treatment Start: 04/05/22 14:02 Freq: NEEDED Status: Active Protocol: Document 04/05/22 11:02 AB (Rec: 04/05/22 14:18 AB [id number]) Physical Therapy Treatment Education Education Provided Precautions,Safety M7 PT-IP Assessment and Plan Start: 04/05/22 14:02 Freq: NEEDED Status: Active Protocol: Document 04/05/22 11:02 AB (Rec: 04/05/22 14:18 AB [id number]) PT Summary Assessment and Plan Potential Rehabilitation Potential Fair Status of Condition at Evaluation Evolving Summary Impairments Pain,ROM,Strength,Balance, Coordination,Sensation,Tone, Cognition,Bed Mobility, Transfers,Gait,Activity Tolerance Assessment Summary pt s/p fall and also dx of dementia. pt only able to sit on EOB and refused to stand and sit on a chair. c/o back pain and pt resistant to mobility. pt will require SNF rehab at this time. will continue to assess progress. LSO brace recommended by ortho MD if pt unable to mobilize with PT. PT will continue to assess pt's appropriateness for LSO brace but at this time , pt seems not appropriate for LSO brace at this time. Goals Bed Mobility Goal Contact Guard Assistance Transfer Goal Moderate Assistance,Front Wheeled Walker Gait Goal Moderate Assistance,Front Wheel Walker Gait Distance 50 Other Goals improve bed mobility, transfers and ambulation using FWW 150 ft SBA up/down 13 steps 1 rail SBA Days to Meet Goals 10 Frequency of Treatment Frequency Of Treatment Once a Day Treatment Plan Physical Therapy Treatment Plan Bed Mobility Training,Transfer Training,Gait Training, Therapeutic Exercise,Balance Retraining,Discharge Planning, Hot or Cold Pack,Neuromuscular Re-ed,Coordination Retraining ,Manual Therapy Precautions Lumbar Precautions Log Roll,No Twisting,Limit Bending,Lifting Restriction of 10 lbs Recommendations To Nursing Amount of Assist Needed PT/OT Assist Only Discharge Recommendations PT Discharge Recommendations SNF Rehab Transportation Needs at Discharge Stretcher/Ambulance
[2022-04-05 12:00] VITALS: BP 134/73; PULSE 64; RESP 18; TEMP 36.1; O2SAT 97
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
[2022-04-05 16:00] VITALS: BP 134/77; PULSE 62; RESP 16; TEMP 36.3; O2SAT 97
[2022-04-05] MEDS: LIDOCAINE PATCH 1 EACH ADH..PATCH TOP (18:28)
[2022-04-05 20:00] VITALS: BP 149/71; PULSE 68; RESP 18; TEMP 36.5; O2SAT 97
[2022-04-05] MEDS: GABAPENTIN 300 MG CAPSULE PO (21:43)
[2022-04-05] MEDS: CALCIUM CARBONATE 600 MG TABLET PO (21:43)
[2022-04-05] MEDS: MELOXICAM 7.5 MG TABLET PO (21:44)
[2022-04-06 04:00] VITALS: BP 136/62; PULSE 64; RESP 17; TEMP 36.3; O2SAT 96
[2022-04-06] MEDS: ACETAMINOPHEN 325 MG TABLET 650 MG PO ×4 (05:16→21:06)
[2022-04-06 05:54] LABS: Add Manual Diff / Slide Review NO; Basophils Absolute Auto 0 /uL (0-100); Basophils Percent Auto 0.5 % (0-2); Eosinophils Absolute Auto 300 /uL (0-450); Eosinophils Percent Auto 5.9 % (2-4); Hematocrit 35.3 % (36-46); Hemoglobin 12.2 g/dL (12.0-16.0); Lymphocytes Absolute Auto 2100 /uL (1100-4500); Lymphocytes Percent Auto 39.7 % (25-40); Mean Corpuscular HGB Conc 34.4 % (30-36); Mean Corpuscular Hemoglobin 33.6 PG (26-34); Mean Corpuscular Volume 97.6 fL (80-100); Monocytes Absolute Auto 300 /uL (0-900); Monocytes Percent Auto 5.6 % (3-14); Neutrophils Absolute Auto 2600 /uL (1500-7000); Neutrophils Percent Auto 48.3 % (50-75); Platelet Count 215 X10^3/uL (150-400); Red Blood Cell Count 3.62 X10^6/uL (4.0-5.2); White Blood Cell Count 5.4 X10^3/uL (4.5-11.0)
[2022-04-06 06:08] LABS: Alanine Aminotransferase 17 IU/L (<35); Albumin 3.1 g/dL (3.5-5.0); Alkaline Phosphatase 82 U/L (38-126); Aspartate Aminotransferase 25 IU/L (14-36); BUN Creatinine Ratio 18.9 (6-22); Bilirubin Total 0.5 mg/dL (0.2-1.3); Blood Urea Nitrogen 17 mg/dL (7-17); Calcium 8.7 mg/dL (8.4-10.2); Carbon Dioxide 23 mmol/L (22-32); Chloride 109 mmol/L (98-107); Estimated Glomerular Filt Rate > 60 mL/min (>60); Glucose 94 mg/dL (80-110); HEMOLYSIS < 15 (0-50); Magnesium 2.1 mg/dL (1.6-2.3); Potassium 4.2 mmol/L (3.4-5.1); Sodium 139 mmol/L (137-145); Total Protein 6.1 g/dL (6.3-8.2)
[2022-04-06 08:50] VITALS: BP 165/84; PULSE 57; RESP 18; TEMP 36.2; O2SAT 99
[2022-04-06] MEDS: CHOLECALCIFEROL (VITAMIN D3) 1,000 UNIT TABLET 2000 UNIT PO (09:14)
[2022-04-06] MEDS: GABAPENTIN 300 MG CAPSULE PO ×3 (09:14→21:07)
[2022-04-06] MEDS: ENOXAPARIN 40 MG/0.4 ML SYRINGE SUBCUT (09:14)
[2022-04-06] MEDS: FUROSEMIDE 40 MG TABLET PO (09:14)
[2022-04-06] MEDS: DOCUSATE 100 MG CAPSULE PO ×2 (09:14→21:07)
[2022-04-06] MEDS: LIDOCAINE PATCH 1 EACH ADH..PATCH TOP (09:14)
[2022-04-06] MEDS: CALCITONIN,SALMON, NASAL SPRAY 1 SPRAYS NASAL (10:13)
[2022-04-06] MEDS: CALCIUM CARBONATE 600 MG TABLET PO ×2 (10:53→21:07)
[2022-04-06] MEDS: MELOXICAM 7.5 MG TABLET PO ×2 (10:53→21:07)
[2022-04-06] MEDS: TRAMADOL 50 MG TABLET PO (10:53)
--- NOTE | 2022-04-06 12:00 | PT.IPTN ---
Current Diagnoses Spinal stenosis, lumbar region without neurogenic claudication (04/04/22) Wedge compression fracture of unspecified lumbar vertebra, initial encounter for closed fracture (04/04/22) Physical Therapy Treatment Note M2 PT-IP Current Condition Start: 04/05/22 14:02 Freq: NEEDED Status: Active Protocol: Document 04/05/22 11:02 AB (Rec: 04/05/22 14:18 AB [id number]) Physical Therapy Current Condition Current Condition Evaluation Date 04/05/22 Treatment Diagnosis fall; L3 compression fx; difficulty in walking Onset Date 04/04/22 M3 PT-IP Subjective Start: 04/05/22 14:02 Freq: NEEDED Status: Active Protocol: Document 04/06/22 12:00 AB (Rec: 04/06/22 13:58 AB [id number]) Subjective Physical Therapy Visit Type Type Treatment Note Visit Start Time 12:00 Visit Stop Time 12:39 Total Visit Minutes 39 Number of LABEL DESIGNER Visits 0 Therapy Pain Assessment Pain When Pain Assessed During Mobility Pain Present Pain Present Pain Reported Location Lower Back Scale Used pain scale not stated M4 PT-IP Mobility and Gait Start: 04/05/22 14:02 Freq: NEEDED Status: Active Protocol: Document 04/06/22 12:00 AB (Rec: 04/06/22 13:58 AB [id number]) PT-Bed Mobility Assessment Rolling Type of Rolling Log Rolling Level of Assist Minimal Assistance Supine to Sit Supine to Sit Minimal Assistance PT-Transfer Assessment Sit to and From Stand Sit to and from Stand Maximum Assistance,2 Person Assistance,Use of Upper Extremities Equipment Transfer Assistive Device Gait Belt,Front Wheeled Walker Orthotic/Prosthetic Devices or Brace: Yes Transfers Transfer Destination Chair,Bedside Commode Transfer Technique Stand Step Pivot Transfer Ability Level of Assist Maximum Assistance,2 Person Assistance,Use of Upper Extremities Comments Mobility Comments LSO provided to pt and pt signed papers. pt's [id number] in room with pt. pt continues to have confusion and decrease cognition. completed log roll supine to sit min A and max cues. needs cues for upright posture. Pt fitted for LSO brace. pt tolerating well. pt needing for brief change. bedside commode positioned next to pt. pt completed sit to stand from the EOB max A x 2 and max cues. c/o increase back pain. pt completed step transfer to bedside commode max a x 2 and max cues using FWW. continue to c/o increase pain. pt completed sit to stand from the bedside commode max Ax 2 and max cues. max A for standing balance using FWW for support while OT assisted pt with hygiene care and brief management. pt requires max cues for posture and be able to stand up longer using fWW for support. switched chair behind pt and pt sat down on chair max A for controlled descent. positioned pt on the chair. call light and table placed within reach. Left pt with OT and [id number] Gait Assessment Comments Gait Comments unable at this time PT-Balance Assessment Sitting Balance and Reactions Static Sitting Balance Ability Fair Dynamic Sitting Balance Ability Fair Standing Balance and Reactions Static Standing Balance Ability Poor Dynamic Standing Balance Ability Poor Device Used FWW M5 PT-IP Objective Assessments Start: 04/05/22 14:02 Freq: NEEDED Status: Active Protocol: Document 04/05/22 11:02 AB (Rec: 04/05/22 14:18 AB [id number]) Orientation Orientation/Cognition Level of Alertness Alert Orientation Name Safety Awareness Decreased Safety Awareness Memory Description Short Term Impaired,Retirement Impaired Gross Range of Motion Lower Extremity ROM Assessment Within Functional Limits Strength Lower Extremity Strength Hip 4-/5 Knee 4-/5 Sensation Assessment Sensation Gross Sensation WNL Muscle Tone Muscle Tone WNL Yes M6 PT-IP Treatment Start: 04/05/22 14:02 Freq: NEEDED Status: Active Protocol: Document 04/06/22 12:00 AB (Rec: 04/06/22 13:58 AB [id number]) Physical Therapy Treatment Education Education Provided Precautions,Safety Equipment Issued Equipment Type and Company LSO brace fitted and dispensed to pt and pt signed paper. M7 PT-IP Assessment and Plan Start: 04/05/22 14:02 Freq: NEEDED Status: Active Protocol: Document 04/06/22 12:00 AB (Rec: 04/06/22 13:58 AB [id number]) PT Summary Assessment and Plan Potential Rehabilitation Potential Fair Summary Impairments Pain,ROM,Strength,Balance, Coordination,Sensation,Tone, Cognition,Bed Mobility, Transfers,Gait,Activity Tolerance Progress Towards Goals Slow Progress due to Pain,Slow Progress due to Activity Tolerance,Slow Progress - Other Assessment Summary pt requiring max A x 2 with transfers using FWW and max cues with all tasks. LSO brace fitted to pt and tolerating well at this time. pt unable to ambulate and c/o increase back pain and needs increase encouragement to mobilize. pt will require SNF rehab to improve mobility. Goals Bed Mobility Goal Contact Guard Assistance Transfer Goal Moderate Assistance,Front Wheeled Walker Gait Goal Moderate Assistance,Front Wheel Walker Gait Distance 50 Other Goals improve bed mobility, transfers and ambulation using FWW 150 ft SBA up/down 13 steps 1 rail SBA Days to Meet Goals 10 Frequency of Treatment Frequency Of Treatment Once a Day Treatment Plan Physical Therapy Treatment Plan Bed Mobility Training,Transfer Training,Gait Training, Therapeutic Exercise,Balance Retraining,Discharge Planning, Hot or Cold Pack,Neuromuscular Re-ed,Coordination Retraining ,Manual Therapy Precautions Lumbar Precautions Log Roll,No Twisting,Limit Bending,Lifting Restriction of 10 lbs Brace LSO brace Recommendations To Nursing Amount of Assist Needed 2 Person Assist Discharge Recommendations PT Discharge Recommendations SNF Rehab Transportation Needs at Discharge Wheelchair/Cabulance,Stretcher /Ambulance
--- NOTE | 2022-04-06 12:49 | OT.IP.TRT ---
Current Diagnoses Spinal stenosis, lumbar region without neurogenic claudication (04/04/22) Wedge compression fracture of unspecified lumbar vertebra, initial encounter for closed fracture (04/04/22) Occupational Therapy Treatment Note M2 OT-IP Current Condition Start: 04/05/22 17:01 Freq: Status: Active Protocol: Document 04/05/22 17:01 [facility] (Rec: 04/05/22 17:22 [facility] [id number]) Occupational Therapy Current Condition Current Condition Evaluation Date 04/05/22 Treatment Diagnosis L3 compression fracture Diagnosis Onset Date 04/04/22 M3 OT- IP Subjective and Pain Start: 04/05/22 17:01 Freq: Status: Active Protocol: Document 04/06/22 13:15 [facility] (Rec: 04/06/22 13:31 [facility] [id number]) OT- Subjective Occupational Therapy Visit Type Type Treatment Note Visit Start Time 12:08 Visit Stop Time 12:49 Total Visit Minutes 41 Occupational Therapy Visit Comments Patient Comments Pt agreed to get up and her sister in law in the room. Able to work with Pt for part of the session for LSO brace fitting. Patient/Caregiver Goals To get better. OT Pain Assessment Pain When Pain Assessed During Mobility M4 OT- IP ADL's Start: 04/05/22 17:01 Freq: Status: Active Protocol: Document 04/06/22 13:15 [facility] (Rec: 04/06/22 13:31 [facility] [id number]) OT [id number] General Evaluation Self-Feeding Ability Standby Assistance Areas Needing Assistance Opening Containers OT ADL-Grooming General Evaluation Grooming Ability Standby Assistance Areas Needing Assistance Retrieving/Set-up of Grooming Items Comments OT Grooming Comments Pt needing set-up assist and cues for sequencing through the task. OT ADL-Oral Care General Eval Oral Care Ability Standby Assistance Comments Oral Care Comments Pt needing step by step cues for oral care needs. OT ADL-Dressing Comments OT Dressing Comments dependent for brief change OT ADL-Toileting General Evaluation Toileting Ability Maximum Assistance Comments OT Toileting Comments Assist for brief change, pt was not successful to be able to use the toilet. Able to take out the Purewick for the transfer and notified pt's nurse the purewick was taken out. OT ADL-Bathing Comments OT Bathing Comments Sponge bath more appropriate at this time. M5 OT- IP IADL's Start: 04/05/22 17:01 Freq: Status: Active Protocol: Document 04/05/22 17:01 [facility] (Rec: 04/05/22 17:22 [facility] [id number]) OT-Instrumental Activities of Daily Living Home Safety Awareness Awareness of Need for Assistance at Home Decreased Awareness Ability to Problem Solve Emergency Unable to Problem Solve Situations Money Management Money Management Caregiver Provides Assistance Meal Preparation Meal Preparation Caregiver Provides Assist Accounts Payable Payroll Coordinator Accounts Payable Payroll Coordinator Caregiver Provides Assist M6 OT- IP Functional Cognition Start: 04/05/22 17:01 Freq: Status: Active Protocol: Document 04/06/22 13:15 [facility] (Rec: 04/06/22 13:31 [facility] [id number]) Cognitive Factors Limiting Selfcare Function Cognitive Ability Level of Alertness Alert,Confusional State Patient Orientation Name Attention Span Ability Capable of Focused Attention, Unable to Sustain Attention Ability to Follow Commands Able to Follow One Step Commands with Increased Time, Able to Follow One Step Commands with Repetition Memory Description Short Term Impaired,Working Impaired Problem Solving Ability Unable to Identify Errors, Needs Assist to Identify Solutions Executive Function Ability Unable to Switch Focus,Unable to Filter Distractions,Unable to Make Plans,Unable to Organize Plans,Unable to Remember Details Cognitive Comments Cognitive Assessment Comments Pt still needing step by step cues to be able to complete ADl needs of grooming and oral care needs. Pt is cooperative but does need encouragement. M7 OT- IP Mobility and Balance Start: 04/05/22 17:01 Freq: Status: Active Protocol: Document 04/06/22 13:15 [facility] (Rec: 04/06/22 13:31 [facility] [id number]) OT- Bed Mobility Assessment Rolling Level of Assistance Minimal Assistance,1 Person Assistance OT-Transfer Assessment Sit to and From Stand Sit to and from Stand Maximum Assistance,2 Person Assistance Transfers Transfer Ability Maximum Assistance,2 Person Assistance Technique Transfer Destination Bed,Bedside Commode,Chair Transfer Technique Stand Step Pivot Comments Mobility Comments ANIKA for bed mobility and MAX AX 2 to stand to the FWW and transfer to the BSc and then recliner. OT- Balance Assessment Sitting Balance and Reactions Static Sitting Balance Ability Fair Dynamic Sitting Balance Ability Poor Standing Balance and Reactions Static Standing Balance Ability Poor Dynamic Standing Balance Ability Poor M8 OT- IP Objective Assessments Start: 04/05/22 17:01 Freq: Status: Active Protocol: Document 04/05/22 17:01 [facility] (Rec: 04/05/22 17:22 [facility] [id number]) OT Gross Range of Motion Upper Extremity Range of Motion Assessment Within Functional Limits OT Strength Upper Extremity Strength Assessment Within Functional Limits M9 OT- IP Assessment and Plan Start: 04/05/22 17:01 Freq: Status: Active Protocol: Document 04/06/22 13:15 [facility] (Rec: 04/06/22 13:31 [facility] [id number]) OT Summary Assessment and Plan Potential Rehabilitation Potential Fair Analytic Complexity at Evaluation Moderate Summary OT Impairments Pain,Balance,Functional Cognition,Functional Mobility, Self-Feeding,Grooming,Dressing ,Toileting,Bathing,Toilet Transfers,Shower Transfers, Activity Tolerance Progress Towards Goals Progressing Toward Goals Assessment Summary Pt able to tolerate wearing the LSO and transfers to the BSC and recliner. Pt needing step by step commands and able to follow with encouragement. Pt will benefit from skilled rehab. Hospitalist able to clarify today to use of LSO for pt instead on TSLO. Chair alarm placed on pt and nursing aware. Goals Self-Feeding Goal Standby Assistance Grooming Goal Standby Assistance Dressing Goal Minimal Assistance Toileting Goal Minimal Assistance Bathing Goal Moderate Assistance Toilet Transfer Goal Minimal Assistance Shower Transfer Goal Moderate Assistance Days to Meet Goals 19 Frequency of Treatment Frequency Of Treatment Once a Day Treatment Plan OT Treatment Plan ADL Training,Functional Cognition Training,Functional Mobility,Patient/Family Education,Discharge Planning Discharge Recommendations OT Discharge Recommendations SNF Rehab Transportation Needs at Discharge Wheelchair/Cabulance
--- NOTE | 2022-04-06 16:56 | P.PN_ITS ---
Subjective Subjective Date Patient Seen: 04/06/22 Interval history: 76-year-old female former smoker with osteoporosis, dementia admitted due to aute L3 compression fx. Pt has right leg weakness secondary to retropulsed bone fragment L3-4. States and RN confirms leg weakness is improving. Still 2 p assist. No loss of bladder control. States pain is controlled. Exam Vital Signs (past 8 hours): Oxygen Delivery Method Room Air Oxygen Flow Rate 0 Narrative Exam Narrative: Gen: alert, appears comfortable sitting in chair Lungs: Breathing normal EXT: 3/5 weakness proximal RLE Neuro: elevated affect, cooperative, not anxious Objective Labs 04/06/22 05:25 04/06/22 05:25 Labs: Laboratory Results - last 24 hr 04/06/22 04/06/22 05:25 05:25 WBC 5.4 RBC 3.62 L Hgb 12.2 Hct 35.3 L MCV 97.6 MCH 33.6 MCHC 34.4 RDW 13.0 Plt Count 215 Neut % (Auto) 48.3 L Lymph % (Auto) 39.7 [place] % (Auto) 5.6 Eos % (Auto) 5.9 H Baso % (Auto) 0.5 Neut # (Auto) 2600 Lymph # (Auto) 2100 [place] # (Auto) 300 Eos # (Auto) 300 Baso # (Auto) 0 Sodium 139 Potassium 4.2 Chloride 109 H Carbon Dioxide 23 BUN 17 Creatinine 0.90 Estimated GFR > 60 BUN/Creatinine Ratio 18.9 Glucose 94 Calcium 8.7 Magnesium 2.1 Total Bilirubin 0.5 AST 25 ALT 17 Alkaline Phosphatase 82 Total Protein 6.1 L Albumin 3.1 L Globulin 3.0 Albumin/Globulin Ratio 1.0 PFSH Family History Mother Murder Sister Early onset Alzheimer's dementia Father Myocardial infarction Sister Alive and well Social History household members: family Smoking Status: Former smoker alcohol intake: never Assessment & Plan Assessment & Plan narrative: 1. Acute L3 compression fracture with L3-4 retropulsed fragment causing n. root impingement, secondary to osteoporosis -RLE weakness improving -pt has multiple other chronic vertebral compression fractures on imaging -appreciate consult by Dr. Dwyer, noted stable fractures, mobilize a tolerated -LSO brace prn comfort -calcitonin NS daily x 4 weeks -acetaminophen 650 mg q.6 hours, hydrocodone 1 tab q.6 hours as needed -lidocaine patch, gabapentin 300 mg tid -continue patient's meloxicam 7.5 mg b.i.d. -calcium 1200 mg daily, Vit D 2000 I.U. daily -cont PT -SNF for acute rehab 2. Cognitive impairment or dementia, longstanding -OT consult requested 3. Recent history of homelessness in [facility] -patient's [id number] has been requesting assistance for placement and possibly guardianship as it appears that patient does not have capacity for making decisions -sw consult requested 4. Chronic diuretic therapy for unclear reasons -continued patient's furosemide 40 mg q.d. -increase KCl to 20 mEq q.d. due to low K on admission DVT prophylaxis: enoxaprin Time Spent With Patient Critical Care time: I spent a total of [] minutes of critical care time on this patient's care today; this time is exclusive of procedural time. Quality VTE Deep Vein Thrombosis/Pulmonary Embolism Present on Admission: No
[2022-04-06 21:00] VITALS: BP 137/77; PULSE 68; RESP 21; TEMP 36.6; O2SAT 97
[2022-04-06] MEDS: HYDROCODONE/ACET 5/325 TABLET 1 TAB PO (21:07)
[2022-04-07] MEDS: CHOLECALCIFEROL (VITAMIN D3) 1,000 UNIT TABLET 2000 UNIT PO (08:31)
[2022-04-07] MEDS: FUROSEMIDE 40 MG TABLET PO (08:32)
[2022-04-07] MEDS: ENOXAPARIN 40 MG/0.4 ML SYRINGE SUBCUT (08:32)
[2022-04-07] MEDS: MELOXICAM 7.5 MG TABLET PO ×2 (08:32→21:47)
[2022-04-07] MEDS: CALCITONIN,SALMON, NASAL SPRAY 1 SPRAYS NASAL (08:32)
[2022-04-07] MEDS: GABAPENTIN 300 MG CAPSULE PO ×3 (08:32→21:47)
[2022-04-07] MEDS: LIDOCAINE PATCH 1 EACH ADH..PATCH TOP (08:32)
[2022-04-07] MEDS: POTASSIUM CHLORIDE 20 MEQ TAB PO (08:32)
[2022-04-07] MEDS: CALCIUM CARBONATE 600 MG TABLET PO ×2 (08:32→21:47)
[2022-04-07] MEDS: DOCUSATE 100 MG CAPSULE PO ×2 (08:32→21:47)
[2022-04-07 08:38] VITALS: BP 189/87; PULSE 62; RESP 17; TEMP 36.3; O2SAT 98
[2022-04-07] MEDS: ACETAMINOPHEN 325 MG TABLET 650 MG PO ×3 (10:26→21:47)
--- NOTE | 2022-04-07 10:31 | OT.IP.TRT ---
Current Diagnoses Spinal stenosis, lumbar region without neurogenic claudication (04/04/22) Wedge compression fracture of unspecified lumbar vertebra, initial encounter for closed fracture (04/04/22) Occupational Therapy Treatment Note M2 OT-IP Current Condition Start: 04/05/22 17:01 Freq: Status: Active Protocol: Document 04/05/22 17:01 [facility] (Rec: 04/05/22 17:22 [facility] [id number]) Occupational Therapy Current Condition Current Condition Evaluation Date 04/05/22 Treatment Diagnosis L3 compression fracture Diagnosis Onset Date 04/04/22 M3 OT- IP Subjective and Pain Start: 04/05/22 17:01 Freq: Status: Active Protocol: Document 04/07/22 10:31 [facility] (Rec: 04/07/22 12:33 [facility] [id number]) OT- Subjective Occupational Therapy Visit Type Type Treatment Note Visit Start Time 10:31 Visit Stop Time 11:00 Total Visit Minutes 29 Occupational Therapy Visit Comments Patient Comments Pt wanting to use the BSC. Patient/Caregiver Goals TO get better. OT Pain Assessment Pain When Pain Assessed During Mobility M4 OT- IP ADL's Start: 04/05/22 17:01 Freq: Status: Active Protocol: Document 04/07/22 10:31 [facility] (Rec: 04/07/22 12:33 [facility] [id number]) OT [id number] Comments OT Self-Feeding Comments not at meal time OT ADL-Grooming General Evaluation Grooming Ability Standby Assistance Areas Needing Assistance Retrieving/Set-up of Grooming Items Comments OT Grooming Comments Pt needing set-up assist and cues for sequencing through the task. OT ADL-Oral Care Comments Oral Care Comments Pt needing step by step cues for oral care needs. OT ADL-Dressing General Eval Lower Body Dressing Ability Maximum Assistance Comments OT Dressing Comments MAXAX to hai/doff her brief over her hips OT ADL-Toileting General Evaluation Toileting Ability Maximum Assistance Comments OT Toileting Comments Pt able to wipe after urinating but needing cues for completeness and needing assist for brief management needs. OT ADL-Bathing Comments OT Bathing Comments To try a shower tomorrow. M5 OT- IP IADL's Start: 04/05/22 17:01 Freq: Status: Active Protocol: Document 04/05/22 17:01 [facility] (Rec: 04/05/22 17:22 [facility] [id number]) OT-Instrumental Activities of Daily Living Home Safety Awareness Awareness of Need for Assistance at Home Decreased Awareness Ability to Problem Solve Emergency Unable to Problem Solve Situations Money Management Money Management Caregiver Provides Assistance Meal Preparation Meal Preparation Caregiver Provides Assist Garbage Man Garbage Man Caregiver Provides Assist M6 OT- IP Functional Cognition Start: 04/05/22 17:01 Freq: Status: Active Protocol: Document 04/07/22 10:31 [facility] (Rec: 04/07/22 12:33 [facility] [id number]) Cognitive Factors Limiting Selfcare Function Cognitive Ability Level of Alertness Alert,Confusional State Patient Orientation Name Attention Span Ability Capable of Focused Attention, Unable to Sustain Attention Ability to Follow Commands Able to Follow One Step Commands with Increased Time, Able to Follow One Step Commands with Repetition Memory Description Short Term Impaired,Working Impaired Problem Solving Ability Unable to Identify Errors, Needs Assist to Identify Solutions Executive Function Ability Unable to Switch Focus,Unable to Filter Distractions,Unable to Make Plans,Unable to Organize Plans,Unable to Remember Details Cognitive Comments Cognitive Assessment Comments Pt still needing step by step commands for all needs , but able to follow and is cooperative. M7 OT- IP Mobility and Balance Start: 04/05/22 17:01 Freq: Status: Active Protocol: Document 04/07/22 10:31 [facility] (Rec: 04/07/22 12:33 [facility] [id number]) OT- Bed Mobility Assessment Rolling Level of Assistance Minimal Assistance,1 Person Assistance OT-Transfer Assessment Sit to and From Stand Sit to and from Stand Moderate Assistance Transfers Transfer Ability Moderate Assistance Technique Transfer Destination Bed,Bedside Commode,Chair Transfer Technique Stand Step Pivot Comments Mobility Comments Pt improved to MODA X 1 with FWW to transfer and assist for balance as has occasional posterior lean. OT- Balance Assessment Sitting Balance and Reactions Static Sitting Balance Ability Good Dynamic Sitting Balance Ability Fair Standing Balance and Reactions Static Standing Balance Ability Poor Dynamic Standing Balance Ability Poor M8 OT- IP Objective Assessments Start: 04/05/22 17:01 Freq: Status: Active Protocol: Document 04/05/22 17:01 [facility] (Rec: 04/05/22 17:22 [facility] [id number]) OT Gross Range of Motion Upper Extremity Range of Motion Assessment Within Functional Limits OT Strength Upper Extremity Strength Assessment Within Functional Limits M9 OT- IP Assessment and Plan Start: 04/05/22 17:01 Freq: Status: Active Protocol: Document 04/07/22 10:31 [facility] (Rec: 04/07/22 12:33 [facility] [id number]) OT Summary Assessment and Plan Potential Rehabilitation Potential Good Analytic Complexity at Evaluation Moderate Summary OT Impairments Pain,Balance,Functional Cognition,Functional Mobility, Self-Feeding,Grooming,Dressing ,Toileting,Bathing,Toilet Transfers,Shower Transfers, Activity Tolerance Progress Towards Goals Progressing Toward Goals Assessment Summary Pt is cooperative and improving with mobility needs but still needing MAX vc for safety, sequencing through tasks and simple concrete commands to follow. Pt will benefit from skilled rehab to maximize her mobility and ADl needs and then may need memory care/adult family home. Goals Self-Feeding Goal Standby Assistance Grooming Goal Standby Assistance Dressing Goal Minimal Assistance Toileting Goal Minimal Assistance Bathing Goal Minimal Assistance Toilet Transfer Goal Contact Guard Assistance Shower Transfer Goal Minimal Assistance Days to Meet Goals 19 Frequency of Treatment Frequency Of Treatment Once a Day Treatment Plan OT Treatment Plan ADL Training,Functional Cognition Training,Functional Mobility,Patient/Family Education,Discharge Planning Discharge Recommendations OT Discharge Recommendations SNF Rehab Transportation Needs at Discharge Wheelchair/Cabulance
--- NOTE | 2022-04-07 11:23 | PT.IPTN ---
Current Diagnoses Spinal stenosis, lumbar region without neurogenic claudication (04/04/22) Wedge compression fracture of unspecified lumbar vertebra, initial encounter for closed fracture (04/04/22) Physical Therapy Treatment Note M2 PT-IP Current Condition Start: 04/05/22 14:02 Freq: NEEDED Status: Active Protocol: Document 04/07/22 11:00 SP (Rec: 04/07/22 13:32 SP [id number]) Physical Therapy Current Condition Current Condition Evaluation Date 04/05/22 Treatment Diagnosis fall; L3 compression fx; difficulty in walking Onset Date 04/04/22 M3 PT-IP Subjective Start: 04/05/22 14:02 Freq: NEEDED Status: Active Protocol: Document 04/07/22 11:00 SP (Rec: 04/07/22 13:32 SP [id number]) Subjective Physical Therapy Visit Type Type Treatment Note Visit Start Time 11:00 Visit Stop Time 11:23 Total Visit Minutes 23 Notes OT in room when arrived, just finished tx with pt. Number of SPEECH LANGUAGE ASSISTANT Visits 1 Physical Therapy Visit Comments Patient Comments Pt agreeable to working with therapy. Therapy Pain Assessment Pain When Pain Assessed During Mobility Pain Present Pain Present Pain Reported Location Lower Back Intensity 3 Scale Used pain scale not stated Description With Movement Pain Management Techniques Distraction,Modification of Treatment,Re-positioning, Timing of Activity with Medications M4 PT-IP Mobility and Gait Start: 04/05/22 14:02 Freq: NEEDED Status: Active Protocol: Document 04/07/22 11:00 SP (Rec: 04/07/22 13:32 SP [id number]) PT-Transfer Assessment Sit to and From Stand Sit to and from Stand Minimal Assistance,1 Person Assistance,Use of Upper Extremities Equipment Transfer Assistive Device Gait Belt,Front Wheeled Walker Orthotic/Prosthetic Devices or Brace: Yes Transfers Transfer Destination Chair,Bedside Commode Transfer Technique Stand Step Pivot Transfer Ability Level of Assist Minimal Assistance,Moderate Assistance,1 Person Assistance ,Use of Upper Extremities Comments Mobility Comments LSO lumbar brace donned, pt seated upright in chair. Max cues throughout tx body positioning, hand placement throughout. Scoot to EOchair, STS Min A heavy BUE on chair arms transition to FWW. Gait forward w/ FWW to door and back to BSC requested use. Cued increased foot clearance/ stride/ taller posturing approx 25 ft Min A little trunk sways support for FWW pivot turn when needed. Cues back up fully/ center BSC, pt able manage brief self with Max cues 1 UE on FWW other brief finding, pt confused moving gown around improved SPEECH LANGUAGE ASSISTANT stated manage disposable underwear, Min A for balance stability due to retro wt shfit recovery. Pt unable to void, STS Min A and balance support for self brief mgt 1 UE. SPT back to chair w/FWW Mod cues pivot fully and back step, HP to chair, slow descend. SPEECH LANGUAGE ASSISTANT assisted elevate BLEs. NOtified nursing pt unableto void and if wish/ needed use reprovide periwick. SPEECH LANGUAGE ASSISTANT donned chair alarm and all needs and call light in reach before left. Gait Assessment Gait Gait Assistance Required: Minimum Assistance,Moderate Assistance,1 Person Assist Distance (Feet) 25 Assistive Devices Assistive Device Gait Belt,Front Wheeled Walker Orthotic/Prosthetic Devices or Brace: Yes Comments Gait Comments unable at this time Stair Climbing Assessment Comments Stair Climbing Comments no stairs to need to assess PT-Balance Assessment Sitting Balance and Reactions Static Sitting Balance Ability Good Dynamic Sitting Balance Ability Fair Standing Balance and Reactions Static Standing Balance Ability Poor Dynamic Standing Balance Ability Poor Device Used FWW M5 PT-IP Objective Assessments Start: 04/05/22 14:02 Freq: NEEDED Status: Active Protocol: Document 04/05/22 11:02 AB (Rec: 04/05/22 14:18 AB [id number]) Orientation Orientation/Cognition Level of Alertness Alert Orientation Name Safety Awareness Decreased Safety Awareness Memory Description Short Term Impaired,Hardscape Foreman Impaired Gross Range of Motion Lower Extremity ROM Assessment Within Functional Limits Strength Lower Extremity Strength Hip 4-/5 Knee 4-/5 Sensation Assessment Sensation Gross Sensation WNL Muscle Tone Muscle Tone WNL Yes M6 PT-IP Treatment Start: 04/05/22 14:02 Freq: NEEDED Status: Active Protocol: Document 04/07/22 11:00 SP (Rec: 04/07/22 13:32 SP [id number]) Physical Therapy Treatment Exercises Exercises Ankle Pumps,Seated Knee Flexion/Extension Education Education Provided Precautions,Safety Equipment Issued Equipment Type and Company LSO brace donned when arrived. M7 PT-IP Assessment and Plan Start: 04/05/22 14:02 Freq: NEEDED Status: Active Protocol: Document 04/07/22 11:00 SP (Rec: 04/07/22 13:32 SP [id number]) PT Summary Assessment and Plan Potential Rehabilitation Potential Fair Status of Condition at Evaluation Evolving Summary Impairments Pain,ROM,Strength,Balance, Coordination,Sensation,Tone, Cognition,Bed Mobility, Transfers,Gait,Activity Tolerance Progress Towards Goals Slow Progress due to Pain,Slow Progress due to Activity Tolerance Assessment Summary Pt edgard devine requiring Min /Mod A x1 during tx w/ FWW, mod/max simple 1 step safety cues and assist PRN for proper hand placement/positioning of body and FWW throughout mobility tx. Pt would benefit from continued skilled rehab SNF for progression in functional mobility. Goals Bed Mobility Goal Contact Guard Assistance Transfer Goal Moderate Assistance,Front Wheeled Walker Gait Goal Moderate Assistance,Front Wheel Walker Gait Distance 50 Other Goals improve bed mobility, transfers and ambulation using FWW 150 ft SBA up/down 13 steps 1 rail SBA Days to Meet Goals 10 Frequency of Treatment Frequency Of Treatment Once a Day Treatment Plan Physical Therapy Treatment Plan Bed Mobility Training,Transfer Training,Gait Training, Therapeutic Exercise,Balance Retraining,Discharge Planning, Hot or Cold Pack,Neuromuscular Re-ed,Coordination Retraining ,Manual Therapy Other Recommendations and Next Treatment bed mob, transfers, gait w/FWW Focus safety techniques. Encouraged to mobilize with nursing with FWW to BSC/bathroom. Precautions Lumbar Precautions Log Roll,No Twisting,Limit Bending,Lifting Restriction of 10 lbs Brace LSO brace Other Precautions Pt was able to recall precautions cues required to maintain them during mobility. Recommendations To Nursing Amount of Assist Needed 1 Person Assist Discharge Recommendations PT Discharge Recommendations SNF Rehab Transportation Needs at Discharge Wheelchair/Cabulance
[2022-04-07 12:04] VITALS: BP 117/69; PULSE 59; RESP 17; TEMP 36.2; O2SAT 95
--- NOTE | 2022-04-07 13:30 | P.PN_ITS ---
Subjective Subjective Date Patient Seen: 04/07/22 Interval history: 76-year-old female former smoker with osteoporosis, dementia admitted due to aute L3 compression fx. Pt has improvement in left leg weakness secondary to retropulsed bone fragment L3-4. States pain is well controlled. Exam Vital Signs (past 8 hours): - 04/07/22 08:38 04/07/22 12:04 Temperature 97.4 F L 97.1 F L Pulse Rate 62 59 L Respiratory Rate 17 17 Blood Pressure 189/87 H 117/69 Pulse Oximetry 98 95 Oxygen Flow Rate 0 0 Oxygen Delivery Method Room Air Oxygen Flow Rate 0 Narrative Exam Narrative: Gen: alert, appears comfortable sitting in chair Lungs:? Breathing normal EXT: 3/5 weakness proximal LLE Neuro: elevated affect, cooperative, not anxious Objective Labs 04/06/22 05:25 04/06/22 05:25 [facility] Family History Mother Murder Sister Early onset Alzheimer's dementia Father Myocardial infarction Sister Alive and well Social History household members: family Smoking Status: Former smoker alcohol intake: never Assessment & Plan Assessment & Plan narrative: 1. Acute L3 compression fracture with L3-4 retropulsed fragment causing n. root impingement, secondary to osteoporosis -LLE weakness improving -pt has multiple other chronic vertebral compression fractures on imaging -appreciate consult by Dr. Dwyer, noted stable fractures, mobilize a tolerated -LSO brace prn comfort -calcitonin NS daily x 4 weeks -acetaminophen 650 mg q.6 hours, hydrocodone 1 tab q.6 hours as needed -lidocaine patch, gabapentin 300 mg tid -continue patient's meloxicam 7.5 mg b.i.d. -calcium 1200 mg daily, Vit D 2000 I.U. daily -cont PT -SNF for acute rehab 2. Cognitive impairment or dementia, longstanding -OT consult requested 3.? Recent history of homelessness in [facility] [place] -patient's [id number] has been requesting assistance for placement and possibly guardianship as it appears that patient does not have capacity for making decisions -sw consult requested 4.? Chronic diuretic therapy for unclear reasons -continued patient's furosemide 40 mg q.d. -increase KCl to 20 mEq q.d. due to low K on admission DVT prophylaxis: enoxaprin Time Spent With Patient Critical Care time: I spent a total of [] minutes of critical care time on this patient's care today; this time is exclusive of procedural time. Quality VTE Deep Vein Thrombosis/Pulmonary Embolism Present on Admission: No
--- NOTE | 2022-04-07 15:39 | CM.DPC ---
DCP continued: CM called patients manager of case management Curt Amandeep [phone] who stated he is working on her assessment today and tomorrow but will need all clinical data faxed or Emailed to him at [email or web address] or faxed to [phone]- CM asked CM senior sales assistant Radha to send clinical information which she did with secure email. CM was told he is working on [facility] assessment tomorrow 04/07/22 and should be done with it by the end of the day. JAMES Called [facility] to check on referral and they stated they cannot accept the patient at this time due to her lack of DC plan. [facility] also said no they cannot accept this patient due to limited rehab potential due to her dementia. Cm called and left with Eileen Malone to check on SNF referral to there facility [facility]: sent clinicals - reviewing- [facility]:sent clinicals - reviewing- [facility]:sent clinicals - reviewing- [facility] CM team to follow up with HCS worker Curt in [place] to see if he needs any more information to complete his assessment. CM team will work on following up on SNF placements and continue on working on safe DC plan. Danyelle Saldana RN Case Mangj[facility]
[2022-04-07 15:59] VITALS: BP 173/85; PULSE 59; RESP 17; TEMP 36.3; O2SAT 99
[2022-04-07] MEDS: HYDROCODONE/ACET 5/325 TABLET 1 TAB PO (17:26)
[2022-04-07 21:50] VITALS: BP 135/83; PULSE 78; RESP 18; TEMP 36.1; O2SAT 96
[2022-04-08] MEDS: HYDROCODONE/ACET 5/325 TABLET 1 TAB PO ×2 (06:31→21:53)
[2022-04-08 08:00] VITALS: BP 109/74; PULSE 60; RESP 17; TEMP 36.5; O2SAT 98
[2022-04-08] MEDS: LIDOCAINE PATCH 1 EACH ADH..PATCH TOP (08:38)
[2022-04-08] MEDS: CALCIUM CARBONATE 600 MG TABLET PO ×2 (08:38→21:53)
[2022-04-08] MEDS: ENOXAPARIN 40 MG/0.4 ML SYRINGE SUBCUT (08:38)
[2022-04-08] MEDS: GABAPENTIN 300 MG CAPSULE PO ×3 (08:38→21:53)
[2022-04-08] MEDS: FUROSEMIDE 40 MG TABLET PO (08:38)
[2022-04-08] MEDS: CHOLECALCIFEROL (VITAMIN D3) 1,000 UNIT TABLET 2000 UNIT PO (08:38)
[2022-04-08] MEDS: DOCUSATE 100 MG CAPSULE PO ×2 (08:38→21:53)
[2022-04-08] MEDS: POTASSIUM CHLORIDE 20 MEQ TAB PO (08:38)
[2022-04-08] MEDS: MELOXICAM 7.5 MG TABLET PO ×2 (08:49→21:53)
[2022-04-08] MEDS: ACETAMINOPHEN 325 MG TABLET 650 MG PO ×3 (08:52→22:47)
[2022-04-08] MEDS: CALCITONIN,SALMON, NASAL SPRAY 1 SPRAYS NASAL (09:04)
--- NOTE | 2022-04-08 11:11 | CM.DPC ---
DCP: Received a call from Curt Bernstein [facility] [employer] [phone] who states that he is working with some of his colleagues at [facility] and mo is checking on pt financial eligibility for SNF placement. He states that when the application was turned in initially the family (Sister in law and pt's brother) requested Assisted living so the application may need to be changed to request SNF placement to speed up the insurance process, although when on the phone with him, he stated the first application is still pending and therefore prior to supporting family with filling out another application and checking SNF, he will return a call to case management probable myself sometime today or on Monday with further information. Francy Melissa RN, [employer]
--- NOTE | 2022-04-08 15:03 | P.PN_ITS ---
Subjective Subjective Date Patient Seen: 04/08/22 Interval history: 76-year-old female former smoker with osteoporosis, dementia admitted due to aute L3 compression fx. Pt has improvement in left leg weakness secondary to retropulsed bone fragment L3-4. States pain is well controlled. Exam Vital Signs (past 8 hours): - 04/08/22 08:00 Temperature 97.7 F Pulse Rate 60 Respiratory Rate 17 Blood Pressure 109/74 Pulse Oximetry 98 Oxygen Flow Rate 0 Oxygen Delivery Method Room Air Oxygen Flow Rate 0 Narrative Exam Narrative: Gen: alert, appears comfortable sitting in chair Lungs:? Breathing normal EXT: 3/5 weakness proximal LLE Neuro: elevated affect, cooperative, not anxious Objective Labs 04/06/22 05:25 04/06/22 05:25 [facility] Family History Mother Murder Sister Early onset Alzheimer's dementia Father Myocardial infarction Sister Alive and well Social History household members: family Smoking Status: Former smoker alcohol intake: never Assessment & Plan Assessment & Plan narrative: 1. Acute L3 compression fracture with L3-4 retropulsed fragment causing n. root impingement, secondary to osteoporosis -LLE weakness improving -pt has multiple other chronic vertebral compression fractures on imaging -appreciate consult by Dr. Dwyer, noted stable fractures, mobilize a tolerated -LSO brace prn comfort -calcitonin NS daily x 4 weeks -acetaminophen 650 mg q.6 hours, hydrocodone 1 tab q.6 hours as needed -lidocaine patch, gabapentin 300 mg tid -continue patient's meloxicam 7.5 mg b.i.d. -calcium 1200 mg daily, Vit D 2000 I.U. daily -cont PT -SNF planned, but difficult with current observation status. 2. Cognitive impairment or dementia, longstanding -OT consult requested 3.? Recent history of homelessness in [facility] state -patient's [id number] has been requesting assistance for placement and possibly guardianship as it appears that patient does not have capacity for making decisions -sw consult requested 4.? Chronic diuretic therapy for unclear reasons -continued patient's furosemide 40 mg q.d. -increase KCl to 20 mEq q.d. due to low K on admission DVT prophylaxis: enoxaprin Time Spent With Patient Critical Care time: I spent a total of [] minutes of critical care time on this patient's care today; this time is exclusive of procedural time. Quality VTE Deep Vein Thrombosis/Pulmonary Embolism Present on Admission: No
[2022-04-08 17:00] VITALS: BP 108/69; PULSE 67; RESP 17; TEMP 36.3; O2SAT 97
--- NOTE | 2022-04-08 17:02 | PT.IPTN ---
Current Diagnoses Spinal stenosis, lumbar region without neurogenic claudication (04/04/22) Wedge compression fracture of unspecified lumbar vertebra, initial encounter for closed fracture (04/04/22) Physical Therapy Treatment Note M2 PT-IP Current Condition Start: 04/05/22 14:02 Freq: NEEDED Status: Active Protocol: Document 04/07/22 11:00 SP (Rec: 04/07/22 13:32 SP [id number]) Physical Therapy Current Condition Current Condition Evaluation Date 04/05/22 Treatment Diagnosis fall; L3 compression fx; difficulty in walking Onset Date 04/04/22 M3 PT-IP Subjective Start: 04/05/22 14:02 Freq: NEEDED Status: Active Protocol: Document 04/08/22 16:44 LJ (Rec: 04/08/22 17:02 LJ [id number]) Subjective Physical Therapy Visit Type Type Treatment Note Visit Start Time 13:21 Visit Stop Time 13:47 Total Visit Minutes 26 Number of SOLAR ENERGY ADVISOR Visits 2 Physical Therapy Visit Comments Patient Comments Pt agreeable to working with therapy. Therapy Pain Assessment Pain When Pain Assessed During Mobility Pain Present Pain Present Pain Reported M4 PT-IP Mobility and Gait Start: 04/05/22 14:02 Freq: NEEDED Status: Active Protocol: Document 04/08/22 16:44 LJ (Rec: 04/08/22 17:02 LJ [id number]) PT-Bed Mobility Assessment Sit to Supine Sit to Supine Standby Assistance Scooting Scooting to Edge of Bed Standby Assistance Scooting Up and Down in Bed Standby Assistance PT-Transfer Assessment Sit to and From Stand Sit to and from Stand Minimal Assistance,1 Person Assistance,Use of Upper Extremities Equipment Transfer Assistive Device Gait Belt,Front Wheeled Walker Orthotic/Prosthetic Devices or Brace: Yes Transfers Transfer Destination Bed,Chair Transfer Technique ambulated Transfer Ability Level of Assist Contact Guard Assistance,1 Person Assistance,Use of Upper Extremities Comments Mobility Comments LSO lumbar brace donned. Pt in bed with head of bed elevated . Completed pivoting LEs off side of bed and scooting to edge of bed SBA. CGA with sit> stand and ambulation ~12' to window seat and back to chair. Pt requested to sit in chair d/t LLE pain. Pt sat for a couple of minutes then stood CGA and ambulated to near side of bed ~4'. Pt sat on side of bed ~30 sec then ambulated to other side of bed ~15' and sat on edge of bed. Scooted self to middle of bed SBA then lifted LEs onto bed. completed one bridge movement to scoot to the middle of the bed. Pt made comfortable in bed and given all needs within reach. Bed alarm activated. Gait Assessment Gait Gait Assistance Required: Contact Guard Assist,1 Person Assist Distance (Feet) 30 Assistive Devices Assistive Device Gait Belt,Front Wheeled Walker Orthotic/Prosthetic Devices or Brace: Yes Comments Gait Comments see mobility Stair Climbing Assessment Comments Stair Climbing Comments no stairs to need to assess M5 PT-IP Objective Assessments Start: 04/05/22 14:02 Freq: NEEDED Status: Active Protocol: Document 04/05/22 11:02 AB (Rec: 04/05/22 14:18 AB [id number]) Orientation Orientation/Cognition Level of Alertness Alert Orientation Name Safety Awareness Decreased Safety Awareness Memory Description Short Term Impaired,Factory Helper Impaired Gross Range of Motion Lower Extremity ROM Assessment Within Functional Limits Strength Lower Extremity Strength Hip 4-/5 Knee 4-/5 Sensation Assessment Sensation Gross Sensation WNL Muscle Tone Muscle Tone WNL Yes M6 PT-IP Treatment Start: 04/05/22 14:02 Freq: NEEDED Status: Active Protocol: Document 04/08/22 16:44 EFE (Rec: 04/08/22 17:02 [id number]) Physical Therapy Treatment Exercises Exercises Ankle Pumps,Seated Knee Flexion/Extension Education Education Provided Precautions,Safety Equipment Issued Equipment Type and Company LSO brace donned when arrived. M7 PT-IP Assessment and Plan Start: 04/05/22 14:02 Freq: NEEDED Status: Active Protocol: Document 04/08/22 16:44 EFE (Rec: 04/08/22 17:02 [id number]) PT Summary Assessment and Plan Potential Rehabilitation Potential Fair Status of Condition at Evaluation Evolving Summary Impairments Pain,ROM,Strength,Balance, Coordination,Sensation,Tone, Cognition,Bed Mobility, Transfers,Gait,Activity Tolerance Progress Towards Goals Slow Progress due to Pain,Slow Progress due to Activity Tolerance Assessment Summary Pt requiring less assist with mobility and gait activities. Cues for positioning FWW in front of body and standing taller. Pt would benefit from SNF for improvement in gait, strength, and functional mobility. Goals Bed Mobility Goal Contact Guard Assistance Transfer Goal Moderate Assistance,Front Wheeled Walker Gait Goal Moderate Assistance,Front Wheel Walker Gait Distance 50 Other Goals improve bed mobility, transfers and ambulation using FWW 150 ft SBA up/down 13 steps 1 rail SBA Days to Meet Goals 10 Frequency of Treatment Frequency Of Treatment Once a Day Treatment Plan Physical Therapy Treatment Plan Bed Mobility Training,Transfer Training,Gait Training, Therapeutic Exercise,Balance Retraining,Discharge Planning, Hot or Cold Pack,Neuromuscular Re-ed,Coordination Retraining ,Manual Therapy Other Recommendations and Next Treatment bed mob, transfers, gait w/FWW Focus safety techniques. Encouraged to mobilize with nursing with FWW to BSC/bathroom. Precautions Lumbar Precautions Log Roll,No Twisting,Limit Bending,Lifting Restriction of 10 lbs Brace LSO brace Other Precautions Pt was able to recall precautions cues required to maintain them during mobility. Recommendations To Nursing Amount of Assist Needed 1 Person Assist Discharge Recommendations PT Discharge Recommendations SNF Rehab
--- NOTE | 2022-04-08 17:05 | PT.IPTN ---
Current Diagnoses Spinal stenosis, lumbar region without neurogenic claudication (04/04/22) Wedge compression fracture of unspecified lumbar vertebra, initial encounter for closed fracture (04/04/22) Physical Therapy Treatment Note M2 PT-IP Current Condition Start: 04/05/22 14:02 Freq: NEEDED Status: Active Protocol: Document 04/07/22 11:00 SP (Rec: 04/07/22 13:32 SP [id number]) Physical Therapy Current Condition Current Condition Evaluation Date 04/05/22 Treatment Diagnosis fall; L3 compression fx; difficulty in walking Onset Date 04/04/22 M3 PT-IP Subjective Start: 04/05/22 14:02 Freq: NEEDED Status: Active Protocol: Document 04/08/22 16:44 LJ (Rec: 04/08/22 17:02 LJ [id number]) Subjective Physical Therapy Visit Type Type Treatment Note Visit Start Time 13:21 Visit Stop Time 13:47 Total Visit Minutes 26 Number of LUMBER HANDLER Visits 2 Physical Therapy Visit Comments Patient Comments Pt agreeable to working with therapy. Therapy Pain Assessment Pain When Pain Assessed During Mobility Pain Present Pain Present Pain Reported M4 PT-IP Mobility and Gait Start: 04/05/22 14:02 Freq: NEEDED Status: Active Protocol: Document 04/08/22 16:44 LJ (Rec: 04/08/22 17:02 LJ [id number]) PT-Bed Mobility Assessment Sit to Supine Sit to Supine Standby Assistance Scooting Scooting to Edge of Bed Standby Assistance Scooting Up and Down in Bed Standby Assistance PT-Transfer Assessment Sit to and From Stand Sit to and from Stand Minimal Assistance,1 Person Assistance,Use of Upper Extremities Equipment Transfer Assistive Device Gait Belt,Front Wheeled Walker Orthotic/Prosthetic Devices or Brace: Yes Transfers Transfer Destination Bed,Chair Transfer Technique ambulated Transfer Ability Level of Assist Contact Guard Assistance,1 Person Assistance,Use of Upper Extremities Comments Mobility Comments LSO lumbar brace donned. Pt in bed with head of bed elevated . Completed pivoting LEs off side of bed and scooting to edge of bed SBA. CGA with sit> stand and ambulation ~12' to window seat and back to chair. Pt requested to sit in chair d/t LLE pain. Pt sat for a couple of minutes then stood CGA and ambulated to near side of bed ~4'. Pt sat on side of bed ~30 sec then ambulated to other side of bed ~15' and sat on edge of bed. Scooted self to middle of bed SBA then lifted LEs onto bed. completed one bridge movement to scoot to the middle of the bed. Pt made comfortable in bed and given all needs within reach. Bed alarm activated. Gait Assessment Gait Gait Assistance Required: Contact Guard Assist,1 Person Assist Distance (Feet) 30 Assistive Devices Assistive Device Gait Belt,Front Wheeled Walker Orthotic/Prosthetic Devices or Brace: Yes Comments Gait Comments see mobility Stair Climbing Assessment Comments Stair Climbing Comments no stairs to need to assess M5 PT-IP Objective Assessments Start: 04/05/22 14:02 Freq: NEEDED Status: Active Protocol: Document 04/05/22 11:02 AB (Rec: 04/05/22 14:18 AB [id number]) Orientation Orientation/Cognition Level of Alertness Alert Orientation Name Safety Awareness Decreased Safety Awareness Memory Description Short Term Impaired,Construction Management Assistant Impaired Gross Range of Motion Lower Extremity ROM Assessment Within Functional Limits Strength Lower Extremity Strength Hip 4-/5 Knee 4-/5 Sensation Assessment Sensation Gross Sensation WNL Muscle Tone Muscle Tone WNL Yes M6 PT-IP Treatment Start: 04/05/22 14:02 Freq: NEEDED Status: Active Protocol: Document 04/08/22 16:44 EFE (Rec: 04/08/22 17:02 [id number]) Physical Therapy Treatment Exercises Exercises Ankle Pumps,Seated Knee Flexion/Extension Education Education Provided Precautions,Safety Equipment Issued Equipment Type and Company LSO brace donned when arrived. M7 PT-IP Assessment and Plan Start: 04/05/22 14:02 Freq: NEEDED Status: Active Protocol: Document 04/08/22 16:44 EFE (Rec: 04/08/22 17:02 [id number]) PT Summary Assessment and Plan Potential Rehabilitation Potential Fair Status of Condition at Evaluation Evolving Summary Impairments Pain,ROM,Strength,Balance, Coordination,Sensation,Tone, Cognition,Bed Mobility, Transfers,Gait,Activity Tolerance Progress Towards Goals Slow Progress due to Pain,Slow Progress due to Activity Tolerance Assessment Summary Pt requiring less assist with mobility and gait activities. Cues for positioning FWW in front of body and standing taller. Pt would benefit from SNF for improvement in gait, strength, and functional mobility. Goals Bed Mobility Goal Contact Guard Assistance Transfer Goal Moderate Assistance,Front Wheeled Walker Gait Goal Moderate Assistance,Front Wheel Walker Gait Distance 50 Other Goals improve bed mobility, transfers and ambulation using FWW 150 ft SBA up/down 13 steps 1 rail SBA Days to Meet Goals 10 Frequency of Treatment Frequency Of Treatment Once a Day Treatment Plan Physical Therapy Treatment Plan Bed Mobility Training,Transfer Training,Gait Training, Therapeutic Exercise,Balance Retraining,Discharge Planning, Hot or Cold Pack,Neuromuscular Re-ed,Coordination Retraining ,Manual Therapy Other Recommendations and Next Treatment bed mob, transfers, gait w/FWW Focus safety techniques. Encouraged to mobilize with nursing with FWW to BSC/bathroom. Precautions Lumbar Precautions Log Roll,No Twisting,Limit Bending,Lifting Restriction of 10 lbs Brace LSO brace Other Precautions Pt was able to recall precautions cues required to maintain them during mobility. Recommendations To Nursing Amount of Assist Needed 1 Person Assist Discharge Recommendations PT Discharge Recommendations SNF Rehab
[2022-04-08 20:00] VITALS: BP 119/65; PULSE 73; RESP 18; TEMP 36.8; O2SAT 96
[2022-04-09 06:00] VITALS: BP 147/79; PULSE 67; RESP 16; TEMP 36.1; O2SAT 98
[2022-04-09 08:49] VITALS: BP 145/69; PULSE 58; RESP 17; TEMP 36.1; O2SAT 98
[2022-04-09] MEDS: LIDOCAINE PATCH 1 EACH ADH..PATCH TOP (09:58)
[2022-04-09] MEDS: ENOXAPARIN 40 MG/0.4 ML SYRINGE SUBCUT (09:58)
[2022-04-09] MEDS: CHOLECALCIFEROL (VITAMIN D3) 1,000 UNIT TABLET 2000 UNIT PO (09:59)
[2022-04-09] MEDS: MELOXICAM 7.5 MG TABLET PO ×2 (09:59→21:30)
[2022-04-09] MEDS: CALCIUM CARBONATE 600 MG TABLET PO ×2 (09:59→21:30)
[2022-04-09] MEDS: DOCUSATE 100 MG CAPSULE PO ×2 (10:00→21:30)
[2022-04-09] MEDS: POTASSIUM CHLORIDE 20 MEQ TAB PO (10:00)
[2022-04-09] MEDS: GABAPENTIN 300 MG CAPSULE PO ×3 (10:00→21:29)
[2022-04-09] MEDS: FUROSEMIDE 40 MG TABLET PO (10:00)
[2022-04-09] MEDS: CALCITONIN,SALMON, NASAL SPRAY 1 SPRAYS NASAL (10:01)
[2022-04-09] MEDS: HYDROCODONE/ACET 5/325 TABLET 1 TAB PO (10:09)
[2022-04-09 13:00] VITALS: BP 104/50; PULSE 59; RESP 17; TEMP 36.1; O2SAT 98
--- NOTE | 2022-04-09 13:37 | CM.DPC ---
Addendum entered by Jonna Alvarado R.N. 04/09/22 15:36: [facility] message with Susan to see if they have any Medicaid beds. Called over at [facility], spoke to one of the CNAs, and let her know that there is a patient here that needs correction care, and if they have any Medicaid beds. She stated that she will relay the message to Adria or Leah, to call this desk on Monday. Addendum entered by Jonna Alvarado R.N. 04/09/22 15:11: Called over to [facility], adult family [facility] here [facility]. Spoke to Cyndee, she has no current Medicaid beds. Did leave a message with Naz at [facility], for they have taken Medicaid patients before. Inquired on the message if they could obtain a one time contract with [facility], and have patient convert over to Medicaid. Let her know in the message that patient has an assigned case supervisor to the case. Will fax over the referral now. Original Note: DCP Cont: Left a message with [facility], Curt Bernstein, regarding patient going to skilled versus assisted living. Notes indicate that he was going to update application for assisted, versus assisted living. It is unclear if patient would continue with this director of casework services versus another for skilled placement. This DC marketing planner can go ahead and call more facilities over the weekend regarding longshore equipment operator placement. P: DCP to work on calling some facilties to see if there are any openings, can attempt adult family homes. Jonna Alvarado, KASANDRA/Concrete Carpenter
--- NOTE | 2022-04-09 14:42 | PM.PN.1 ---
Subjective Subjective Date Patient Seen: 04/09/22 Interval history: 76-year-old female former smoker with osteoporosis, dementia admitted due to aute L3 compression fx. Pt has improvement in left leg weakness secondary to retropulsed bone fragment L3-4. States pain is well controlled. Exam Vital Signs (past 8 hours): - 04/09/22 08:49 04/09/22 13:00 Temperature 97.0 F L 96.9 F L Pulse Rate 58 L 59 L Respiratory Rate 17 17 Blood Pressure 145/69 H 104/50 L Pulse Oximetry 98 98 Oxygen Flow Rate 0 0 Oxygen Delivery Method Room Air Oxygen Flow Rate 0 Narrative Exam Narrative: Gen: alert, appears comfortable sitting in chair Lungs:? Breathing normal EXT: 4/5 weakness proximal LLE Neuro: elevated affect, cooperative, not anxious Objective Labs 04/06/22 05:25 04/06/22 05:25 PFSH Family History Mother Murder Sister Early onset Alzheimer's dementia Father Myocardial infarction Sister Alive and well Social History household members: family Smoking Status: Former smoker alcohol intake: never Assessment & Plan Assessment & Plan narrative: 1. Acute L3 compression fracture with L3-4 retropulsed fragment causing n. root impingement, secondary to osteoporosis -LLE weakness improving -pt has multiple other chronic vertebral compression fractures on imaging -appreciate consult by Dr. Dwyer, noted stable fractures, mobilize a tolerated -LSO brace prn comfort -calcitonin NS daily x 4 weeks -acetaminophen 650 mg q.6 hours, hydrocodone 1 tab q.6 hours as needed -lidocaine patch, gabapentin 300 mg tid -continue patient's meloxicam 7.5 mg b.i.d. -calcium 1200 mg daily, Vit D 2000 I.U. daily -cont PT -SNF planned 2. Cognitive impairment or dementia, longstanding -OT consult requested 3.? [place] -patient's [id number] has been requesting assistance for placement and possibly guardianship as it appears that patient does not have capacity for making decisions -sw consult requested 4.? Chronic diuretic therapy for unclear reasons -continued patient's furosemide 40 mg q.d. -increase KCl to 20 mEq q.d. due to low K on admission DVT prophylaxis: enoxaprin Time Spent With Patient Critical Care time: I spent a total of [] minutes of critical care time on this patient's care today; this time is exclusive of procedural time. Quality VTE Deep Vein Thrombosis/Pulmonary Embolism Present on Admission: No
--- NOTE | 2022-04-09 15:31 | PT.IPTN ---
Current Diagnoses Spinal stenosis, lumbar region without neurogenic claudication (04/04/22) Wedge compression fracture of unspecified lumbar vertebra, initial encounter for closed fracture (04/04/22) Physical Therapy Treatment Note M2 PT-IP Current Condition Start: 04/05/22 14:02 Freq: NEEDED Status: Active Protocol: Document 04/07/22 11:00 SP (Rec: 04/07/22 13:32 SP [id number]) Physical Therapy Current Condition Current Condition Evaluation Date 04/05/22 Treatment Diagnosis fall; L3 compression fx; difficulty in walking Onset Date 04/04/22 M3 PT-IP Subjective Start: 04/05/22 14:02 Freq: NEEDED Status: Active Protocol: Document 04/09/22 15:20 LJ (Rec: 04/09/22 15:31 LJ [id number]) Subjective Physical Therapy Visit Type Type Treatment Note Visit Start Time 14:29 Visit Stop Time 14:48 Total Visit Minutes 19 Number of RECEIVING WEIGHER Visits 3 Physical Therapy Visit Comments Patient Comments Pt agreeable to working with therapy. Therapy Pain Assessment Pain When Pain Assessed During Mobility Pain Present Pain Present Pain Reported M4 PT-IP Mobility and Gait Start: 04/05/22 14:02 Freq: NEEDED Status: Active Protocol: Document 04/09/22 15:20 LJ (Rec: 04/09/22 15:31 LJ [id number]) PT-Bed Mobility Assessment Sit to Supine Sit to Supine Standby Assistance Scooting Scooting to Edge of Bed Standby Assistance Scooting Up and Down in Bed Standby Assistance PT-Transfer Assessment Sit to and From Stand Sit to and from Stand Minimal Assistance,1 Person Assistance,Use of Upper Extremities Equipment Transfer Assistive Device Gait Belt,Front Wheeled Walker Orthotic/Prosthetic Devices or Brace: Yes Transfers Transfer Destination Bed,Chair Transfer Technique ambulated Transfer Ability Level of Assist Contact Guard Assistance,1 Person Assistance,Use of Upper Extremities Comments Mobility Comments LSO lumbar brace donned. Pt in bed with head of bed elevated . Completed pivoting LEs off side of bed and scooting to edge of bed SBA. Jacquelin with sit >stand and ambulation ~12' to window seat and back to bed. Pt requested to sit on EOB d/ t LLE pain. Pt sat for a couple of minutes then stood Jacquelin and ambulated to chair ~3 '. Pt requested to keep brace on while she sat in the chair. Given blanket and all needs within reach. Nursing notified pt would like pain meds. Gait Assessment Gait Gait Assistance Required: Contact Guard Assist,1 Person Assist Distance (Feet) 23 Assistive Devices Assistive Device Gait Belt,Front Wheeled Walker Orthotic/Prosthetic Devices or Brace: Yes Comments Gait Comments see mobility Stair Climbing Assessment Comments Stair Climbing Comments no stairs to need to assess M5 PT-IP Objective Assessments Start: 04/05/22 14:02 Freq: NEEDED Status: Active Protocol: Document 04/05/22 11:02 AB (Rec: 04/05/22 14:18 AB [id number]) Orientation Orientation/Cognition Level of Alertness Alert Orientation Name Safety Awareness Decreased Safety Awareness Memory Description Short Term Impaired,Shelter Impaired Gross Range of Motion Lower Extremity ROM Assessment Within Functional Limits Strength Lower Extremity Strength Hip 4-/5 Knee 4-/5 Sensation Assessment Sensation Gross Sensation WNL Muscle Tone Muscle Tone WNL Yes M6 PT-IP Treatment Start: 04/05/22 14:02 Freq: NEEDED Status: Active Protocol: Document 04/09/22 15:20 (Rec: 04/09/22 15:31 [id number]) Physical Therapy Treatment Exercises Exercises Ankle Pumps,Gluteal Sets,Quad Sets,Heel Slides Education Education Provided Precautions,Safety Equipment Issued Equipment Type and Company LSO brace donned when arrived. M7 PT-IP Assessment and Plan Start: 04/05/22 14:02 Freq: NEEDED Status: Active Protocol: Document 04/09/22 15:20 (Rec: 04/09/22 15:31 [id number]) PT Summary Assessment and Plan Potential Rehabilitation Potential Fair Status of Condition at Evaluation Evolving Summary Impairments Pain,ROM,Strength,Balance, Coordination,Sensation,Tone, Cognition,Bed Mobility, Transfers,Gait,Activity Tolerance Assessment Summary Pt still c/o LLE pain during ambulation which restricts increasing gait training and distance. Still Mod cueing for posture and FWW management. She will need SNF for improvement in strength, mobility, and gait. Goals Bed Mobility Goal Contact Guard Assistance Transfer Goal Moderate Assistance,Front Wheeled Walker Gait Goal Moderate Assistance,Front Wheel Walker Gait Distance 50 Other Goals improve bed mobility, transfers and ambulation using FWW 150 ft SBA up/down 13 steps 1 rail SBA Days to Meet Goals 10 Frequency of Treatment Frequency Of Treatment Once a Day Treatment Plan Physical Therapy Treatment Plan Bed Mobility Training,Transfer Training,Gait Training, Therapeutic Exercise,Balance Retraining,Discharge Planning, Hot or Cold Pack,Neuromuscular Re-ed,Coordination Retraining ,Manual Therapy Other Recommendations and Next Treatment bed mob, transfers, gait w/FWW Focus safety techniques. Encouraged to mobilize with nursing with FWW to BSC/bathroom. Precautions Lumbar Precautions Log Roll,No Twisting,Limit Bending,Lifting Restriction of 10 lbs Brace LSO brace Other Precautions Pt was able to recall precautions but cues required to maintain them during mobility. Recommendations To Nursing Amount of Assist Needed 1 Person Assist Discharge Recommendations PT Discharge Recommendations SNF Rehab
[2022-04-09] MEDS: ACETAMINOPHEN 325 MG TABLET 650 MG PO ×2 (15:42→21:29)
[2022-04-09 17:10] VITALS: BP 155/71; PULSE 78; RESP 17; TEMP 36.2; O2SAT 98
[2022-04-09 20:00] VITALS: BP 159/74; PULSE 66; RESP 17; TEMP 36.2; O2SAT 98
[2022-04-10 06:00] VITALS: BP 133/71; PULSE 54; RESP 17; TEMP 35.9; O2SAT 98
[2022-04-10] MEDS: HYDROCODONE/ACET 5/325 TABLET 1 TAB PO (06:32)
[2022-04-10] MEDS: DOCUSATE 100 MG CAPSULE PO ×2 (08:24→20:42)
[2022-04-10] MEDS: CHOLECALCIFEROL (VITAMIN D3) 1,000 UNIT TABLET 2000 UNIT PO (08:24)
[2022-04-10] MEDS: GABAPENTIN 300 MG CAPSULE PO ×3 (08:24→20:43)
[2022-04-10] MEDS: POTASSIUM CHLORIDE 20 MEQ TAB PO (08:24)
[2022-04-10] MEDS: CALCIUM CARBONATE 600 MG TABLET PO ×2 (08:24→20:42)
[2022-04-10] MEDS: MELOXICAM 7.5 MG TABLET PO ×2 (08:25→20:42)
[2022-04-10] MEDS: FUROSEMIDE 40 MG TABLET PO (08:25)
[2022-04-10] MEDS: ENOXAPARIN 40 MG/0.4 ML SYRINGE SUBCUT (08:26)
[2022-04-10] MEDS: LIDOCAINE PATCH 1 EACH ADH..PATCH TOP (08:26)
[2022-04-10] MEDS: CALCITONIN,SALMON, NASAL SPRAY 1 SPRAYS NASAL (08:42)
[2022-04-10] MEDS: ACETAMINOPHEN 325 MG TABLET 650 MG PO ×3 (10:24→20:42)
--- NOTE | 2022-04-10 12:30 | PM.PN.1 ---
Subjective Subjective Date Patient Seen: 04/10/22 Interval history: 76-year-old female former smoker with osteoporosis, dementia admitted due to aute L3 compression fx. Pt has improvement in left leg weakness secondary to retropulsed bone fragment L3-4. States pain is well controlled. Exam Vital Signs (past 8 hours): - 04/10/22 06:00 Temperature 96.7 F L Pulse Rate 54 L Respiratory Rate 17 Blood Pressure 133/71 Pulse Oximetry 98 Oxygen Flow Rate 0 Oxygen Delivery Method Room Air Oxygen Flow Rate 0 Narrative Exam Narrative: Gen: alert, appears comfortable sitting in chair Lungs:? Breathing normal EXT: 4/5 weakness proximal LLE Neuro: elevated affect, cooperative, not anxious Objective Labs 04/06/22 05:25 04/06/22 05:25 [facility] Family History Mother Murder Sister Early onset Alzheimer's dementia Father Myocardial infarction Sister Alive and well Social History household members: family Smoking Status: Former smoker alcohol intake: never Assessment & Plan Assessment & Plan narrative: 1. Acute L3 compression fracture with L3-4 retropulsed fragment causing n. root impingement, secondary to osteoporosis -LLE weakness improving -pt has multiple other chronic vertebral compression fractures on imaging -appreciate consult by Dr. Dwyer, noted stable fractures, mobilize a tolerated -LSO brace prn comfort -calcitonin NS daily x 4 weeks -acetaminophen 650 mg q.6 hours, hydrocodone 1 tab q.6 hours as needed -lidocaine patch, gabapentin 300 mg tid -continue patient's meloxicam 7.5 mg b.i.d. -calcium 1200 mg daily, Vit D 2000 I.U. daily -cont PT -SNF planned 2. Cognitive impairment or dementia, longstanding -OT consult requested 3.? Recent history of homelessness in [facility] -patient's [id number] has been requesting assistance for placement and possibly guardianship as it appears that patient does not have capacity for making decisions -sw consult requested 4.? Chronic diuretic therapy for unclear reasons -continued patient's furosemide 40 mg q.d. -increase KCl to 20 mEq q.d. due to low K on admission DVT prophylaxis: enoxaprin Time Spent With Patient Critical Care time: I spent a total of [] minutes of critical care time on this patient's care today; this time is exclusive of procedural time. Quality VTE Deep Vein Thrombosis/Pulmonary Embolism Present on Admission: No
[2022-04-10 14:00] VITALS: BP 115/67; PULSE 60; RESP 18; TEMP 36.2; O2SAT 98
--- NOTE | 2022-04-10 15:17 | CM.DPC ---
DCP Cont: Looked up [facility] in [place], [facility], as we have worked with them before. Their number is: [phone]. Allie is the point of contact. Did speak to her today, and confirmed that she does have one Medicaid bed. Asked her about daily rates, did let her know that this patient does have some dementia, but is not an elopement risk. She indicated, she would hope that she could get $170.00, but may not happen. She asked to have clinical information emailed to her. Her email is: [email or web address]. Left a note for assistant strength coach, Radha, to see if she can email H&P, therapy notes. Called patient's [facility] VIDEO GAME PROGRAMMER worker, Curt Bernstein, and left him a message about this adult family home, and gave him her phone number. Also let him know, on the other perspective, as far as correction facilities, have worked with [facility] as well. P: DCP to work on discharge. Having Radha email [facility], and have messages out to Curt Bernstein, will need to follow up tomorrow. Have message out to Naz at [facility], and faxed her the referral. Have messages out to [facility], with Susan, to see if they have Medicaid beds, and message out to Bety at [facility] to see if they have Medicaid beds. As stated in prior notes, local skilled facilities have declined, but some in [place] are pending. Jonna Alvarado RN/Aquatic Centre Manager
[2022-04-10 22:05] VITALS: BP 119/63; PULSE 61; RESP 21; TEMP 36.3; O2SAT 98
[2022-04-11 06:20] VITALS: BP 117/64; PULSE 57; RESP 19; TEMP 35.9; O2SAT 96
[2022-04-11] MEDS: POTASSIUM CHLORIDE 20 MEQ TAB PO (08:38)
[2022-04-11] MEDS: MELOXICAM 7.5 MG TABLET PO ×2 (08:38→20:46)
[2022-04-11] MEDS: GABAPENTIN 300 MG CAPSULE PO ×3 (08:38→20:46)
[2022-04-11] MEDS: DOCUSATE 100 MG CAPSULE PO ×2 (08:39→20:46)
[2022-04-11] MEDS: ENOXAPARIN 40 MG/0.4 ML SYRINGE SUBCUT (08:39)
[2022-04-11] MEDS: LIDOCAINE PATCH 1 EACH ADH..PATCH TOP (08:39)
[2022-04-11] MEDS: CALCITONIN,SALMON, NASAL SPRAY 1 SPRAYS NASAL (08:39)
[2022-04-11] MEDS: CALCIUM CARBONATE 600 MG TABLET PO ×2 (08:39→20:46)
[2022-04-11] MEDS: FUROSEMIDE 40 MG TABLET PO (08:39)
[2022-04-11] MEDS: CHOLECALCIFEROL (VITAMIN D3) 1,000 UNIT TABLET 2000 UNIT PO (08:39)
[2022-04-11 09:00] VITALS: BP 112/64; PULSE 76; RESP 17; TEMP 36.2; O2SAT 96
--- NOTE | 2022-04-11 09:19 | CM.DPC ---
DCP: This CM sent referral to [facility] via email per their request this am. Also spoke with Curt at [facility] who will be performing a functional assessment for pt this afternoon. 425. This CM will send him updated PT notes from this am and updated MD baltazar notes via email per his request. He states that [facility] Financial assessment coincides with the functional assessment and so is in process. Curt will speak with his colleagues this am and reach out to [facility] and will also attain resources for pt with regards to AF availability. This CM will touch base with Curt a bit later today. Francy Melissa, gearcase assembler
--- NOTE | 2022-04-11 09:21 | OT.IP.TRT ---
Current Diagnoses Spinal stenosis, lumbar region without neurogenic claudication (04/04/22) Wedge compression fracture of unspecified lumbar vertebra, initial encounter for closed fracture (04/04/22) Occupational Therapy Treatment Note M2 OT-IP Current Condition Start: 04/05/22 17:01 Freq: Status: Active Protocol: Document 04/05/22 17:01 [facility] (Rec: 04/05/22 17:22 [facility] [id number]) Occupational Therapy Current Condition Current Condition Evaluation Date 04/05/22 Treatment Diagnosis L3 compression fracture Diagnosis Onset Date 04/04/22 M3 OT- IP Subjective and Pain Start: 04/05/22 17:01 Freq: Status: Active Protocol: Document 04/11/22 09:19 [facility] (Rec: 04/11/22 09:28 [facility] [id number]) OT- Subjective Occupational Therapy Visit Type Type Treatment Note Visit Start Time 08:58 Visit Stop Time 09:21 Total Visit Minutes 23 Occupational Therapy Visit Comments Patient Comments Pt states wanting to look at her [place] and try to use the bathroom. Patient/Caregiver Goals TO get better. OT Pain Assessment Pain When Pain Assessed At Rest Pain Present Pain Present Denied Pain M4 OT- IP ADL's Start: 04/05/22 17:01 Freq: Status: Active Protocol: Document 04/11/22 09:19 [facility] (Rec: 04/11/22 09:28 [facility] [id number]) OT [id number] Comments OT Self-Feeding Comments not at meal time OT ADL-Grooming Comments OT Grooming Comments Not performed. OT ADL-Oral Care Comments Oral Care Comments Pt states did prior while in bed. OT ADL-Dressing General Eval Lower Body Dressing Ability Maximum Assistance Comments OT Dressing Comments MAXAX to hai/doff her brief over her hips and feet, and for socks. Pt is dependent for lumbar brace management needs. OT ADL-Toileting General Evaluation Toileting Ability Maximum Assistance Comments OT Toileting Comments Assist for all brief management needs and for completeness of hygiene. OT ADL-Bathing Comments OT Bathing Comments Not performed. M5 OT- IP IADL's Start: 04/05/22 17:01 Freq: Status: Active Protocol: Document 04/05/22 17:01 [facility] (Rec: 04/05/22 17:22 [facility] [id number]) OT-Instrumental Activities of Daily Living Home Safety Awareness Awareness of Need for Assistance at Home Decreased Awareness Ability to Problem Solve Emergency Unable to Problem Solve Situations Money Management Money Management Caregiver Provides Assistance Meal Preparation Meal Preparation Caregiver Provides Assist Commutator Tester Commutator Tester Caregiver Provides Assist M6 OT- IP Functional Cognition Start: 04/05/22 17:01 Freq: Status: Active Protocol: Document 04/11/22 09:19 [facility] (Rec: 04/11/22 09:28 [facility] [id number]) Cognitive Factors Limiting Selfcare Function Cognitive Ability Level of Alertness Alert,Confusional State Patient Orientation Name Attention Span Ability Capable of Focused Attention, Unable to Sustain Attention Ability to Follow Commands Able to Follow One Step Commands with Increased Time, Able to Follow One Step Commands with Repetition Memory Description Short Term Impaired,Working Impaired Cognitive Comments Cognitive Assessment Comments Pt is pleasant and cooperative but needing step by step commands to follow for ADl and mobility needs. M7 OT- IP Mobility and Balance Start: 04/05/22 17:01 Freq: Status: Active Protocol: Document 04/11/22 09:19 [facility] (Rec: 04/11/22 09:28 [facility] [id number]) OT- Bed Mobility Assessment Supine to Sit Supine to Sit Assist Minimal Assistance Sit to Supine Sit to Supine Assist Moderate Assistance OT-Transfer Assessment Sit to and From Stand Sit to and from Stand Minimal Assistance Transfers Transfer Ability Minimal Assistance,Moderate Assistance Technique Transfer Destination Bed,Toilet Transfer Technique Stand Step Pivot Comments Mobility Comments ANIKA to MODA for bed mobility and transfer needs. Pt needing cues for FWW safety, hand and feet placement and at times assist to help guide the FWW. OT- Balance Assessment Sitting Balance and Reactions Static Sitting Balance Ability Good Dynamic Sitting Balance Ability Fair Standing Balance and Reactions Static Standing Balance Ability Poor Dynamic Standing Balance Ability Poor M8 OT- IP Objective Assessments Start: 04/05/22 17:01 Freq: Status: Active Protocol: Document 04/05/22 17:01 [facility] (Rec: 04/05/22 17:22 [facility] [id number]) OT Gross Range of Motion Upper Extremity Range of Motion Assessment Within Functional Limits OT Strength Upper Extremity Strength Assessment Within Functional Limits M9 OT- IP Assessment and Plan Start: 04/05/22 17:01 Freq: Status: Active Protocol: Document 04/11/22 09:19 [facility] (Rec: 04/11/22 09:28 [facility] [id number]) OT Summary Assessment and Plan Potential Rehabilitation Potential Good Analytic Complexity at Evaluation Moderate Summary OT Impairments Pain,Balance,Functional Cognition,Functional Mobility, Self-Feeding,Grooming,Dressing ,Toileting,Bathing,Toilet Transfers,Shower Transfers, Activity Tolerance Progress Towards Goals Progressing Toward Goals Assessment Summary Pt improving with mobility needs and now needing from MIN -MODA. However due to pt's decreased STM, pt will always need one person assist for completeness, safety and physical assist . Therefore pt will highly benefit from an adult family home, LTC and home health at this time. Goals Self-Feeding Goal Standby Assistance Grooming Goal Standby Assistance Dressing Goal Moderate Assistance Toileting Goal Moderate Assistance Bathing Goal Minimal Assistance Toilet Transfer Goal Contact Guard Assistance Shower Transfer Goal Minimal Assistance Days to Meet Goals 10 Frequency of Treatment Frequency Of Treatment Once a Day Treatment Plan OT Treatment Plan ADL Training,Functional Cognition Training,Functional Mobility,Patient/Family Education,Discharge Planning Discharge Recommendations OT Discharge Recommendations Home Health,LTAC Other Discharge Recommendations Pt will highly benefit from Adult family home/LTC at this time and home health. Transportation Needs at Discharge Private Vehicle,Wheelchair/ Cabulance
[2022-04-11] MEDS: ACETAMINOPHEN 325 MG TABLET 650 MG PO ×3 (10:36→20:47)
[2022-04-11] MEDS: HYDROCODONE/ACET 5/325 TABLET 1 TAB PO ×2 (11:17→23:59)
--- NOTE | 2022-04-11 11:21 | PT.IPTN ---
Current Diagnoses Spinal stenosis, lumbar region without neurogenic claudication (04/04/22) Wedge compression fracture of unspecified lumbar vertebra, initial encounter for closed fracture (04/04/22) Physical Therapy Treatment Note M2 PT-IP Current Condition Start: 04/05/22 14:02 Freq: NEEDED Status: Active Protocol: Document 04/07/22 11:00 [facility] (Rec: 04/07/22 13:32 [facility] [id number]) Physical Therapy Current Condition Current Condition Evaluation Date 04/05/22 Treatment Diagnosis fall; L3 compression fx; difficulty in walking Onset Date 04/04/22 M3 PT-IP Subjective Start: 04/05/22 14:02 Freq: NEEDED Status: Active Protocol: Document 04/11/22 11:08 [facility] (Rec: 04/11/22 11:21 [facility] [id number]) Subjective Physical Therapy Visit Type Type Treatment Note Visit Start Time 10:50 Visit Stop Time 11:08 Total Visit Minutes 18 Number of ASSOCIATE ENTERTAINMENT EDITOR Visits 0 Physical Therapy Visit Comments Patient Comments Patient reports she has been sleeping so is out of it. M4 PT-IP Mobility and Gait Start: 04/05/22 14:02 Freq: NEEDED Status: Active Protocol: Document 04/11/22 11:08 [facility] (Rec: 04/11/22 11:21 [facility] [id number]) PT-Bed Mobility Assessment Supine to Sit Supine to Sit Contact Guard Assistance PT-Transfer Assessment Sit to and From Stand Sit to and from Stand Minimal Assistance,1 Person Assistance,Use of Upper Extremities Equipment Transfer Assistive Device Gait Belt,Front Wheeled Walker Orthotic/Prosthetic Devices or Brace: Yes Transfers Transfer Destination Bed,Chair Transfer Technique Stand Step Pivot Transfer Ability Level of Assist Minimal Assistance,Moderate Assistance Comments Mobility Comments Patient in bed with LSO brace donned, HOB elevated. Pt. pivoted to sitting at EOB with CGA. Sit to stand with min assist to FWW. Gait training 30 ft in room with FWW, CGA, cues for upright posture and safe use of walker. Patient c /o left anterior thigh pain with ambulation. Patient assisted into chair with CGA, cues for positioning, able to scoot back in chair with SBA once LE's elevated. Patient left sitting in chair with call light and alarm in place, tray table next to patient. Gait Assessment Gait Gait Assistance Required: Contact Guard Assist,1 Person Assist Distance (Feet) 30 Assistive Devices Assistive Device Gait Belt,Front Wheeled Walker Orthotic/Prosthetic Devices or Brace: Yes Stair Climbing Assessment Comments Stair Climbing Comments no stairs to need to assess M5 PT-IP Objective Assessments Start: 04/05/22 14:02 Freq: NEEDED Status: Active Protocol: Document 04/05/22 11:02 [facility] (Rec: 04/05/22 14:18 [facility] [id number]) Orientation Orientation/Cognition Level of Alertness Alert Orientation Name Safety Awareness Decreased Safety Awareness Memory Description Short Term Impaired,Assisted Impaired Gross Range of Motion Lower Extremity ROM Assessment Within Functional Limits Strength Lower Extremity Strength Hip 4-/5 Knee 4-/5 Sensation Assessment Sensation Gross Sensation WNL Muscle Tone Muscle Tone WNL Yes M6 PT-IP Treatment Start: 04/05/22 14:02 Freq: NEEDED Status: Active Protocol: Document 04/11/22 11:08 [facility] (Rec: 04/11/22 11:21 [facility] [id number]) Physical Therapy Treatment Exercises Exercises Ankle Pumps,Gluteal Sets,Quad Sets,Heel Slides Education Education Provided Precautions,Safety Equipment Issued Equipment Type and Company LSO brace donned when arrived. M7 PT-IP Assessment and Plan Start: 04/05/22 14:02 Freq: NEEDED Status: Active Protocol: Document 04/11/22 11:08 [facility] (Rec: 04/11/22 11:21 [facility] [id number]) PT Summary Assessment and Plan Potential Rehabilitation Potential Fair Status of Condition at Evaluation Evolving Summary Impairments Pain,ROM,Strength,Balance, Coordination,Sensation,Tone, Cognition,Bed Mobility, Transfers,Gait,Activity Tolerance Assessment Summary Patient c/o left thigh pain with gait, only able to increase gait distance small amount today. She was alert but confused, unable to accurately answer any questions about her situation, asking do I have to walk after being settled into her chair after walking. Verbalizing that her family is going to pick her up today to go to the [place] area. Nursing notified about c/o pain. Patient would be unsafe if discharged home due to physical needs and confusion. Recommend SNF or adult family home or other assisted living situation with 24 hr care plus Home Health. Goals Bed Mobility Goal Contact Guard Assistance Transfer Goal Moderate Assistance,Front Wheeled Walker Gait Goal Moderate Assistance,Front Wheel Walker Gait Distance 50 Other Goals improve bed mobility, transfers and ambulation using FWW 150 ft SBA up/down 13 steps 1 rail SBA Days to Meet Goals 10 Frequency of Treatment Frequency Of Treatment Once a Day Treatment Plan Physical Therapy Treatment Plan Bed Mobility Training,Transfer Training,Gait Training, Therapeutic Exercise,Balance Retraining,Discharge Planning, Hot or Cold Pack,Neuromuscular Re-ed,Coordination Retraining ,Manual Therapy Other Recommendations and Next Treatment bed mob, transfers, gait w/FWW Focus safety techniques. Encouraged to mobilize with nursing with FWW to BSC/bathroom. Precautions Lumbar Precautions Log Roll,No Twisting,Limit Bending,Lifting Restriction of 10 lbs Brace LSO brace Other Precautions Needs instruction/practice with logroll Recommendations To Nursing Amount of Assist Needed 1 Person Assist Discharge Recommendations PT Discharge Recommendations Home with 19/09 Assist Available,Home Health,SNF Rehab
--- NOTE | 2022-04-11 12:02 | CM.DPC ---
Addendum entered by Peggy Saldana 04/11/22 13:31: Recieved return call from Curt pt's state CM he reports that he has two facilities that he would like us to look at for placement the first is [facility]# [phone] and the second is [facility] ph# [phone]. In addition to the above. Curt is going to ask patient's some questions via face time today. Curt calling vegetable farm manager's cell phone at 2:00pm. P: Pending detention placement. SUSSY Original Note: DCP/Continued: Reviewed chart. Patient is in OBS status LOS #7. CM team attempting placement for both skilled and long-term. As of this week patient no longer need halfway. She is in need of long-term assisted living memory care type facility. Placed call to assigned [facility] worker Curt ph# [phone] he reports to ENGRAVINGS POLISHER that patient's assessment will be completed today. However, after his assessment completed then finanical portion will need to be completed. ENGRAVINGS POLISHER notified Curt that [facility] in has shown interest in patient if they get appropriate rate? ENGRAVINGS POLISHER attempted to call [facility] and never was able to reach anyone at either phone number. Therefore, placed additional calls to [facility] in [place] spoke with Ericka ph# [phone] she reports that they do have medicaid beds without 2yr spend down requirement. She requested that clinicals and state assessment be emialed to her at [email or web address] Ericka aware that we are waiting on state assessment. Left message with where the heart is re: their bed availibility and whether or not they need 2yr spend down. Francy and JAIME/Radha updated. P: Transfer to memory care once state assessment completed and placement found. SUSSY
[2022-04-11 14:00] VITALS: BP 117/62; PULSE 64; RESP 17; TEMP 36.2; O2SAT 95
--- NOTE | 2022-04-11 14:11 | P.PN_ITS ---
Subjective Subjective Date Patient Seen: 04/11/22 Interval history: 76-year-old female former smoker with osteoporosis, dementia admitted due to aute L3 compression fx. Pt has improvement in left leg weakness secondary to retropulsed bone fragment L3-4. States pain is well controlled. Exam Vital Signs (past 8 hours): - 04/11/22 06:20 04/11/22 09:00 Temperature 96.6 F L 97.1 F L Pulse Rate 57 L 76 Respiratory Rate 19 17 Blood Pressure 117/64 112/64 Pulse Oximetry 96 96 Oxygen Flow Rate 0 0 Oxygen Delivery Method Room Air Oxygen Flow Rate 0 Narrative Exam Narrative: Gen: alert, appears comfortable sitting in chair Lungs:? Breathing normal EXT: 4/5 weakness proximal LLE Neuro: elevated affect, cooperative, not anxious Objective Labs 04/06/22 05:25 04/06/22 05:25 [facility] Family History Mother Murder Sister Early onset Alzheimer's dementia Father Myocardial infarction Sister Alive and well Social History household members: family Smoking Status: Former smoker alcohol intake: never Assessment & Plan Assessment & Plan narrative: 1. Acute L3 compression fracture with L3-4 retropulsed fragment causing n. root impingement, secondary to osteoporosis -LLE weakness improving -pt has multiple other chronic vertebral compression fractures on imaging -appreciate consult by Dr. Dwyer, noted stable fractures, mobilize a tolerated -LSO brace prn comfort -calcitonin NS daily x 4 weeks -acetaminophen 650 mg q.6 hours, hydrocodone 1 tab q.6 hours as needed -lidocaine patch, gabapentin 300 mg tid -continue patient's meloxicam 7.5 mg b.i.d. -calcium 1200 mg daily, Vit D 2000 I.U. daily -cont PT -SNF planned 2. Cognitive impairment or dementia, longstanding -OT consult requested 3.? Recent history [place] homelessness [place] -patient's [id number] has been requesting assistance for placement and possibly guardianship as it appears that patient does not have capacity for making decisions -sw consult requested 4.? Chronic diuretic therapy for unclear reasons -continued patient's furosemide 40 mg q.d. -increase KCl to 20 mEq q.d. due to low K on admission DVT prophylaxis: enoxaprin Dispo: awaiting placement Time Spent With Patient Critical Care time: I spent a total of [] minutes of critical care time on this patient's care today; this time is exclusive of procedural time. Quality VTE Deep Vein Thrombosis/Pulmonary Embolism Present on Admission: No
[2022-04-11 22:00] VITALS: BP 122/64; PULSE 64; RESP 18; TEMP 36.2; O2SAT 96
[2022-04-12 06:00] VITALS: BP 122/76; PULSE 56; RESP 17; TEMP 36.1; O2SAT 98
--- NOTE | 2022-04-12 08:17 | PM.PN.1 ---
Subjective Subjective Date Patient Seen: 04/12/22 Interval history: Patient is pleasantly confused and chatty. She has no complaints and is just wondering where she will go when leaving the hospital. Exam Vital Signs (past 8 hours): - 04/12/22 06:00 Temperature 97.0 F L Pulse Rate 56 L Respiratory Rate 17 Blood Pressure 122/76 Pulse Oximetry 98 Oxygen Delivery Method Room Air Oxygen Flow Rate 0 Narrative Exam Narrative: Gen: alert, appears comfortable sitting in chair Lungs:? Breathing normal EXT: 4/5 weakness proximal LLE Neuro: elevated affect, cooperative, not anxious Objective Labs 04/06/22 05:25 04/06/22 05:25 [facility] Family History Mother Murder Sister Early onset Alzheimer's dementia Father Myocardial infarction Sister Alive and well Social History household members: family Smoking Status: Former smoker alcohol intake: never Assessment & Plan Assessment & Plan narrative: 1. Acute L3 compression fracture with L3-4 retropulsed fragment causing n. root impingement, secondary to osteoporosis -LLE weakness improving -pt has multiple other chronic vertebral compression fractures on imaging -appreciate consult by Dr. Dwyer, noted stable fractures, mobilize a tolerated -LSO brace prn comfort -calcitonin NS daily x 4 weeks -acetaminophen 650 mg q.6 hours, hydrocodone 1 tab q.6 hours as needed -lidocaine patch, gabapentin 300 mg tid -continue patient's meloxicam 7.5 mg b.i.d. -calcium 1200 mg daily, Vit D 2000 I.U. daily -cont PT -SNF vs memory care unit planned 2. Dementia, longstanding -OT consulted who performed SLUMS and patient score 7/30 indicating dementia 3.? Recent history of homelessness in [facility] -patient's [id number] has been requesting assistance for placement and possibly guardianship as it appears that patient does not have capacity for making decisions -sw consult requested 4.? Chronic diuretic therapy for unclear reasons -continued patient's furosemide 40 mg q.d. -increase KCl to 20 mEq q.d. due to low K on admission DVT prophylaxis: enoxaprin Proxy: brother uLis who is POA. Dispo: awaiting placement Time Spent With Patient Critical Care time: I spent a total of [] minutes of critical care time on this patient's care today; this time is exclusive of procedural time. Quality VTE Deep Vein Thrombosis/Pulmonary Embolism Present on Admission: No
[2022-04-12] MEDS: CALCITONIN,SALMON, NASAL SPRAY 1 SPRAYS NASAL (08:31)
[2022-04-12] MEDS: CHOLECALCIFEROL (VITAMIN D3) 1,000 UNIT TABLET 2000 UNIT PO (08:32)
[2022-04-12] MEDS: GABAPENTIN 300 MG CAPSULE PO ×3 (08:32→19:47)
[2022-04-12] MEDS: DOCUSATE 100 MG CAPSULE PO ×2 (08:32→19:47)
[2022-04-12] MEDS: POTASSIUM CHLORIDE 20 MEQ TAB PO (08:32)
[2022-04-12] MEDS: HYDROCODONE/ACET 5/325 TABLET 1 TAB PO ×3 (08:32→21:56)
[2022-04-12] MEDS: FUROSEMIDE 40 MG TABLET PO (08:32)
[2022-04-12] MEDS: MELOXICAM 7.5 MG TABLET PO ×2 (08:32→19:47)
[2022-04-12] MEDS: CALCIUM CARBONATE 600 MG TABLET PO ×2 (08:32→19:48)
[2022-04-12] MEDS: ENOXAPARIN 40 MG/0.4 ML SYRINGE SUBCUT (08:32)
[2022-04-12] MEDS: LIDOCAINE PATCH 1 EACH ADH..PATCH TOP (08:32)
[2022-04-12 08:48] VITALS: BP 135/54; PULSE 60; RESP 17; TEMP 36.2; O2SAT 100
[2022-04-12] MEDS: ACETAMINOPHEN 325 MG TABLET 650 MG PO ×3 (10:37→21:55)
[2022-04-12 11:59] VITALS: BP 137/74; PULSE 73; RESP 17; TEMP 36.1; O2SAT 97
--- NOTE | 2022-04-12 12:09 | CM.DPC ---
Addendum entered by Francy Melissa R.N. 04/12/22 15:10: This CM notified Curt Bernstein at [facility] of referral that was sent to [facility] by this CM. Per Curt, he had been out in the field most of the day. He stated that he is currently working on getting the facilities the cost per day. This CM reached out and left a vm for Renea Rebeca [phone] who is Curt's pulp mill supervisor requesting support to help speed up the process. Addendum entered by Francy Melissa R.N. 04/12/22 14:05: This CM reached out to Samy at [facility]. He reports that they have 2 medicaid beds avail. Sent referral to him via email and CC'd his clinical education specialist Kiana per his request. They are reviewing pt for placement. This CM called and left Curt a VM asking him to forward his assessment to [facility]. Original Note: DCP: This CM called and spoke with Curt at [facility] this am who stated that he did not receive the fax from last pm with regards to updated notes. All notes refaxed this am at approx [phone] which would still not go through. JAMES Garcia Asst supported with contacting Curt and emailing all notes. This CM called [facility] and spoke with Erikca who requested that Curt forward them his assessment. Per Ericka David is the director and Marybeth is the Nurse delegator and both are reviewing pt's notes to determine their ability to accept. Francy Melissa, mixing and molding machine operator
--- NOTE | 2022-04-12 12:26 | CM.DPC ---
DCP continued: Reviewed chart per JAIME/Radha Bernstein ph# [phone] state worker unable to send completed [facility] assessment through email or fax? Curt making another attempt. QUALITY MANAGER placed call to [facility] and they do have long-term Medicaid beds. Asked that they connect with Curt. Spoke with DCP/Francy notifying her that we need to continue to follow up with d/c plan and the state. SUSSY
--- NOTE | 2022-04-12 15:22 | PT.IPTN ---
Current Diagnoses Spinal stenosis, lumbar region without neurogenic claudication (04/04/22) Wedge compression fracture of unspecified lumbar vertebra, initial encounter for closed fracture (04/04/22) Physical Therapy Treatment Note M2 PT-IP Current Condition Start: 04/05/22 14:02 Freq: NEEDED Status: Active Protocol: Document 04/07/22 11:00 SP (Rec: 04/07/22 13:32 SP [id number]) Physical Therapy Current Condition Current Condition Evaluation Date 04/05/22 Treatment Diagnosis fall; L3 compression fx; difficulty in walking Onset Date 04/04/22 M3 PT-IP Subjective Start: 04/05/22 14:02 Freq: NEEDED Status: Active Protocol: Document 04/12/22 15:08 LJ (Rec: 04/12/22 15:22 LJ [id number]) Subjective Physical Therapy Visit Type Type Treatment Note Visit Start Time 13:46 Visit Stop Time 14:16 Total Visit Minutes 30 Number of CONTENT DIRECTOR Visits 1 Physical Therapy Visit Comments Patient Comments Pt willing to work with therapy. Therapy Pain Assessment Pain When Pain Assessed During Mobility Pain Present Pain Present Pain Reported M4 PT-IP Mobility and Gait Start: 04/05/22 14:02 Freq: NEEDED Status: Active Protocol: Document 04/12/22 15:08 LJ (Rec: 04/12/22 15:22 LJ [id number]) PT-Transfer Assessment Sit to and From Stand Sit to and from Stand Minimal Assistance,1 Person Assistance,Use of Upper Extremities Equipment Transfer Assistive Device Gait Belt,Front Wheeled Walker Orthotic/Prosthetic Devices or Brace: Yes Transfers Transfer Destination Chair Transfer Technique ambulated Transfer Ability Level of Assist Contact Guard Assistance, Minimal Assistance,1 Person Assistance,Use of Upper Extremities Comments Mobility Comments Pt sitting in chair. LSO brace not on pt. Pt scooted forward in chair SBA then this therapist donned LSO. Pt stood CGA-Jacquelin and cues to push up from chair. Pt ambulated to door and back to other side of bed ~20'. Requested to sit on bed d/t reported pain in Lthigh. Pt then stood and performed marching for 20 seconds. Sat back on bed lowering herself carefully. Pt then ambulated ~12' to window seat and back to chair. Sat in chair CGA and cues to use LEs on armrests. Pt completed seated exercises for ~10 min. Gait Assessment Gait Gait Assistance Required: Contact Guard Assist,Minimum Assistance,1 Person Assist Distance (Feet) 32 Assistive Devices Assistive Device Gait Belt,Front Wheeled Walker Orthotic/Prosthetic Devices or Brace: Yes Comments Gait Comments see mobility Stair Climbing Assessment Comments Stair Climbing Comments no stairs to need to assess M5 PT-IP Objective Assessments Start: 04/05/22 14:02 Freq: NEEDED Status: Active Protocol: Document 04/05/22 11:02 AB (Rec: 04/05/22 14:18 AB [id number]) Orientation Orientation/Cognition Level of Alertness Alert Orientation Name Safety Awareness Decreased Safety Awareness Memory Description Short Term Impaired,Halfway Impaired Gross Range of Motion Lower Extremity ROM Assessment Within Functional Limits Strength Lower Extremity Strength Hip 4-/5 Knee 4-/5 Sensation Assessment Sensation Gross Sensation WNL Muscle Tone Muscle Tone WNL Yes M6 PT-IP Treatment Start: 04/05/22 14:02 Freq: NEEDED Status: Active Protocol: Document 04/12/22 15:08 EFE (Rec: 04/12/22 15:22 [id number]) Physical Therapy Treatment Exercises Exercises Ankle Pumps,Gluteal Sets,Quad Sets,Heel Slides,Straight Leg Raises Education Education Provided Precautions,Safety Equipment Issued Equipment Type and Company LSO brace donned when arrived. M7 PT-IP Assessment and Plan Start: 04/05/22 14:02 Freq: NEEDED Status: Active Protocol: Document 04/12/22 15:08 EFE (Rec: 04/12/22 15:22 [id number]) PT Summary Assessment and Plan Potential Rehabilitation Potential Fair Status of Condition at Evaluation Evolving Summary Impairments Pain,ROM,Strength,Balance, Coordination,Sensation,Tone, Cognition,Bed Mobility, Transfers,Gait,Activity Tolerance Assessment Summary Patient c/o left thigh pain with gait, only able to increase gait distance small amount today. She remains alert but confused. Pt not making progress with gait or tolerable activity level. Left thigh pain limiting gait and exercises. Will need SNF to improve strength and gait. Appears to be a good candidate for Adult Family Home/ Long Term care. Goals Bed Mobility Goal Contact Guard Assistance Transfer Goal Moderate Assistance,Front Wheeled Walker Gait Goal Moderate Assistance,Front Wheel Walker Gait Distance 50 Other Goals improve bed mobility, transfers and ambulation using FWW 150 ft SBA up/down 13 steps 1 rail SBA Days to Meet Goals 10 Frequency of Treatment Frequency Of Treatment Once a Day Treatment Plan Physical Therapy Treatment Plan Bed Mobility Training,Transfer Training,Gait Training, Therapeutic Exercise,Balance Retraining,Discharge Planning, Hot or Cold Pack,Neuromuscular Re-ed,Coordination Retraining ,Manual Therapy Other Recommendations and Next Treatment bed mob, transfers, gait w/FWW Focus safety techniques. Encouraged to mobilize with nursing with FWW to BSC/bathroom. Precautions Lumbar Precautions Log Roll,No Twisting,Limit Bending,Lifting Restriction of 10 lbs Brace LSO brace Other Precautions Does not follow precautions unless constantly cued Recommendations To Nursing Amount of Assist Needed 1 Person Assist Discharge Recommendations PT Discharge Recommendations Home with 19/09 Assist Available,Home Health,SNF Rehab,LTAC Transportation Needs at Discharge Wheelchair/Cabulance
--- NOTE | 2022-04-12 16:05 | OT.IP.TRT ---
Current Diagnoses Spinal stenosis, lumbar region without neurogenic claudication (04/04/22) Wedge compression fracture of unspecified lumbar vertebra, initial encounter for closed fracture (04/04/22) Occupational Therapy Treatment Note M2 OT-IP Current Condition Start: 04/05/22 17:01 Freq: Status: Active Protocol: Document 04/05/22 17:01 [facility] (Rec: 04/05/22 17:22 [facility] [id number]) Occupational Therapy Current Condition Current Condition Evaluation Date 04/05/22 Treatment Diagnosis L3 compression fracture Diagnosis Onset Date 04/04/22 M3 OT- IP Subjective and Pain Start: 04/05/22 17:01 Freq: Status: Active Protocol: Document 04/12/22 16:05 [facility] (Rec: 04/12/22 16:21 [facility] [id number]) OT- Subjective Occupational Therapy Visit Type Type Treatment Note Visit Start Time 15:50 Visit Stop Time 16:07 Total Visit Minutes 17 Occupational Therapy Visit Comments Patient Comments Pt agreed to work on LB dressing needs. Patient/Caregiver Goals TO get better. OT Pain Assessment Pain When Pain Assessed During Mobility Pain Present Pain Present Denied Pain M4 OT- IP ADL's Start: 04/05/22 17:01 Freq: Status: Active Protocol: Document 04/12/22 16:05 [facility] (Rec: 04/12/22 16:21 [facility] [id number]) OT [id number] Comments OT Self-Feeding Comments not at meal time OT ADL-Grooming Comments OT Grooming Comments Not performed. OT ADL-Oral Care Comments Oral Care Comments Not performed OT ADL-Dressing General Eval Lower Body Dressing Ability Maximum Assistance Comments OT Dressing Comments Able to show pt LB dressing equipment needs and able to practice and noted pt having less pain when using equipment needs. Pt has no carry over for equipment needs or precautions. At this time pt will need at least supervision for use of adaptive equipment or just assist to do LB dressing needs. OT ADL-Bathing Comments OT Bathing Comments Not performed. M5 OT- IP IADL's Start: 04/05/22 17:01 Freq: Status: Active Protocol: Document 04/05/22 17:01 [facility] (Rec: 04/05/22 17:22 [facility] [id number]) OT-Instrumental Activities of Daily Living Home Safety Awareness Awareness of Need for Assistance at Home Decreased Awareness Ability to Problem Solve Emergency Unable to Problem Solve Situations Money Management Money Management Caregiver Provides Assistance Meal Preparation Meal Preparation Caregiver Provides Assist Dip Dyer Dip Dyer Caregiver Provides Assist M6 OT- IP Functional Cognition Start: 04/05/22 17:01 Freq: Status: Active Protocol: Document 04/12/22 16:05 [facility] (Rec: 04/12/22 16:21 [facility] [id number]) Cognitive Factors Limiting Selfcare Function Cognitive Comments Cognitive Assessment Comments Pt still needing step by step commands and no carry over for new learning of use of curator herbarium and sock aid. M7 OT- IP Mobility and Balance Start: 04/05/22 17:01 Freq: Status: Active Protocol: Document 04/12/22 16:05 [facility] (Rec: 04/12/22 16:21 [facility] [id number]) OT- Balance Assessment Sitting Balance and Reactions Static Sitting Balance Ability Good Dynamic Sitting Balance Ability Fair M8 OT- IP Objective Assessments Start: 04/05/22 17:01 Freq: Status: Active Protocol: Document 04/05/22 17:01 [facility] (Rec: 04/05/22 17:22 [facility] [id number]) OT Gross Range of Motion Upper Extremity Range of Motion Assessment Within Functional Limits OT Strength Upper Extremity Strength Assessment Within Functional Limits M9 OT- IP Assessment and Plan Start: 04/05/22 17:01 Freq: Status: Active Protocol: Document 04/12/22 16:05 [facility] (Rec: 04/12/22 16:25 [facility] [id number]) OT Summary Assessment and Plan Potential Rehabilitation Potential Fair Analytic Complexity at Evaluation Moderate Summary OT Impairments Pain,Balance,Functional Cognition,Functional Mobility, Self-Feeding,Grooming,Dressing ,Toileting,Bathing,Toilet Transfers,Shower Transfers, Activity Tolerance Progress Towards Goals Progressing Toward Goals,Slow Progress due to Cognition Assessment Summary Pt able to follow commands for new learning of LB dressing equipment with MAX vc however no carry over. Pt due to decreased short term memory and safety awareness will need one person assist for all needs. Pt would benefit from LTC, memorycare/adult family home. Goals Self-Feeding Goal Standby Assistance Grooming Goal Standby Assistance Dressing Goal Moderate Assistance Toileting Goal Moderate Assistance Bathing Goal Minimal Assistance Toilet Transfer Goal Contact Guard Assistance Shower Transfer Goal Minimal Assistance Days to Meet Goals 7 Frequency of Treatment Frequency Of Treatment Once a Day Treatment Plan OT Treatment Plan ADL Training,Functional Cognition Training,Functional Mobility,Patient/Family Education,Discharge Planning Discharge Recommendations OT Discharge Recommendations Home Health,LTAC Other Discharge Recommendations Pt will highly benefit from Adult family home/LTC at this time and home health. Transportation Needs at Discharge Private Vehicle,Wheelchair/ Cabulance
[2022-04-12 16:09] VITALS: BP 154/75; PULSE 70; RESP 17; TEMP 36.5; O2SAT 97
[2022-04-12 20:00] VITALS: BP 146/85; PULSE 65; RESP 18; TEMP 36.4; O2SAT 97
[2022-04-13] MEDS: HYDROCODONE/ACET 5/325 TABLET 1 TAB PO ×2 (06:45→20:09)
--- NOTE | 2022-04-13 07:59 | CM.DPC ---
DCP: [facility] requested prog notes and nursing notes from 04/05 to 04/11. This CM sent her PT/OT notes, Md baltazar note, Jude both yesterday afternoon and this am via email. Francy Melissa, lehr cutter
--- NOTE | 2022-04-13 08:04 | PM.PN.1 ---
Subjective Subjective Date Patient Seen: 04/13/22 Interval history: Patient has no complaints. Awaiting placement. Exam Vital Signs (past 8 hours): Oxygen Delivery Method Room Air Oxygen Flow Rate 0 Narrative Exam Narrative: Gen: alert, appears comfortable sitting in chair Lungs:? Breathing normal EXT: 4/5 weakness proximal LLE Neuro: elevated affect, cooperative, not anxious Objective Labs 04/06/22 05:25 04/06/22 05:25 [facility] Family History Mother Murder Sister Early onset Alzheimer's dementia Father Myocardial infarction Sister Alive and well Social History household members: family Smoking Status: Former smoker alcohol intake: never Assessment & Plan Assessment & Plan narrative: 1. Acute L3 compression fracture with L3-4 retropulsed fragment causing n. root impingement, secondary to osteoporosis -LLE weakness improving -pt has multiple other chronic vertebral compression fractures on imaging -appreciate consult by Dr. Dwyer, noted stable fractures, mobilize a tolerated -LSO brace prn comfort -calcitonin NS daily x 4 weeks -acetaminophen 650 mg q.6 hours, hydrocodone 1 tab q.6 hours as needed -lidocaine patch, gabapentin 300 mg tid -continue patient's meloxicam 7.5 mg b.i.d. -calcium 1200 mg daily, Vit D 2000 I.U. daily -cont PT -SNF vs memory care unit planned 2. Dementia, longstanding -OT consulted who performed SLUMS and patient score 7/30 indicating dementia 3.? Recent history of homelessness [facility] -patient's [id number]-[id number] has been requesting assistance for placement and possibly guardianship as it appears that patient does not have capacity for making decisions - consult requested 4.? Chronic diuretic therapy for unclear reasons -continued patient's furosemide 40 mg q.d. -increase KCl to 20 mEq q.d. due to low K on admission DVT prophylaxis: enoxaprin Proxy: brother Luis who is POA. Dispo: awaiting placement Time Spent With Patient Critical Care time: I spent a total of [] minutes of critical care time on this patient's care today; this time is exclusive of procedural time. Quality VTE Deep Vein Thrombosis/Pulmonary Embolism Present on Admission: No
[2022-04-13 08:44] VITALS: BP 138/80; PULSE 68; RESP 19; TEMP 36.7; O2SAT 98
--- NOTE | 2022-04-13 08:54 | DIET.CONS2 ---
Addendum entered by Yaa Nuñez 04/13/22 10:39: RD agrees with Cork Insulation Setter note below. Original Note: Dietary Inpatient Consultation Note Admission Date: 04/04/2022 21:53 RD screened pt for LOS >5 days. Pt consuming 100% of meals. No nutrition needs identified. Diet: 04/04/22 Breakfast General (Regular) Diet Diet Modifications: vegan diet Nutrition Percent Meal Consumed 100% 04/12/22 18:00 Percent Meal Consumed 100% 04/12/22 09:25 Percent Meal Consumed 100% 04/12/22 08:48 Percent Meal Consumed 100% 04/11/22 18:00 Percent Meal Consumed 100% 04/11/22 14:37 Electronically Signed by: Mickie Palacio 04/13/22 08:54 Clinical Dietitian [address] [address]
[2022-04-13] MEDS: MELOXICAM 7.5 MG TABLET PO ×2 (09:28→20:08)
[2022-04-13] MEDS: CHOLECALCIFEROL (VITAMIN D3) 1,000 UNIT TABLET 2000 UNIT PO (09:28)
[2022-04-13] MEDS: FUROSEMIDE 40 MG TABLET PO (09:28)
[2022-04-13] MEDS: GABAPENTIN 300 MG CAPSULE PO ×3 (09:28→20:09)
[2022-04-13] MEDS: DOCUSATE 100 MG CAPSULE PO ×2 (09:28→20:09)
[2022-04-13] MEDS: LIDOCAINE PATCH 1 EACH ADH..PATCH TOP (09:28)
[2022-04-13] MEDS: CALCIUM CARBONATE 600 MG TABLET PO ×2 (09:28→20:09)
[2022-04-13] MEDS: POTASSIUM CHLORIDE 20 MEQ TAB PO (09:28)
[2022-04-13] MEDS: ENOXAPARIN 40 MG/0.4 ML SYRINGE SUBCUT (09:28)
[2022-04-13] MEDS: CALCITONIN,SALMON, NASAL SPRAY 1 SPRAYS NASAL (09:30)
[2022-04-13] MEDS: ACETAMINOPHEN 325 MG TABLET 650 MG PO ×2 (10:18→17:19)
--- NOTE | 2022-04-13 10:53 | PT.IPTN ---
Current Diagnoses Spinal stenosis, lumbar region without neurogenic claudication (04/04/22) Wedge compression fracture of unspecified lumbar vertebra, initial encounter for closed fracture (04/04/22) Physical Therapy Treatment Note M2 PT-IP Current Condition Start: 04/05/22 14:02 Freq: NEEDED Status: Active Protocol: Document 04/07/22 11:00 SP (Rec: 04/07/22 13:32 SP [id number]) Physical Therapy Current Condition Current Condition Evaluation Date 04/05/22 Treatment Diagnosis fall; L3 compression fx; difficulty in walking Onset Date 04/04/22 M3 PT-IP Subjective Start: 04/05/22 14:02 Freq: NEEDED Status: Active Protocol: Document 04/13/22 10:31 LJ (Rec: 04/13/22 10:53 LJ [id number]) Subjective Physical Therapy Visit Type Type Treatment Note Visit Start Time 09:13 Visit Stop Time 09:39 Total Visit Minutes 26 Number of FOOD SERVICE REPRESENTATIVE Visits 2 Physical Therapy Visit Comments Patient Comments Pt willing to work with therapy. Therapy Pain Assessment Pain When Pain Assessed During Mobility Pain Present Pain Present Pain Reported M4 PT-IP Mobility and Gait Start: 04/05/22 14:02 Freq: NEEDED Status: Active Protocol: Document 04/13/22 10:31 LJ (Rec: 04/13/22 10:53 LJ [id number]) PT-Bed Mobility Assessment Supine to Sit Supine to Sit Standby Assistance Scooting Scooting to Edge of Bed Standby Assistance PT-Transfer Assessment Sit to and From Stand Sit to and from Stand Contact Guard Assistance,Use of Upper Extremities Equipment Transfer Assistive Device Gait Belt,Front Wheeled Walker Orthotic/Prosthetic Devices or Brace: Yes Transfers Transfer Destination Chair Transfer Technique ambulated Transfer Ability Level of Assist Contact Guard Assistance,1 Person Assistance,Use of Upper Extremities Comments Mobility Comments Pt in bed with head of bed elevated. oot of bed flattened . Pt swung LEs off side of bed and scooted to edge SBA and cues for precautions. Brace donned while pt sitting on side of bed. Pt stood pushing off bed CGA then ambulated around bed to window to chair. Pt requested to sit in chair because of LLE pain. Pt sat ~3 min then agreed to amblate again to window and back to chair. Pt again requested to sit due to pain. Pt sat several minutes while nsg passing meds and applying patch to L hip. Pt then ambulated again to window and back to chair. Cued to sit using arm rests which she did. Brace doffed per pts request. Pt given all needs within reach and chair alarm applied. Gait Assessment Gait Gait Assistance Required: Contact Guard Assist,1 Person Assist Distance (Feet) 30 Assistive Devices Assistive Device Gait Belt,Front Wheeled Walker Orthotic/Prosthetic Devices or Brace: Yes Comments Gait Comments see mobility Stair Climbing Assessment Comments Stair Climbing Comments no stairs to need to assess M5 PT-IP Objective Assessments Start: 04/05/22 14:02 Freq: NEEDED Status: Active Protocol: Document 04/05/22 11:02 AB (Rec: 04/05/22 14:18 AB [id number]) Orientation Orientation/Cognition Level of Alertness Alert Orientation Name Safety Awareness Decreased Safety Awareness Memory Description Short Term Impaired,Mcfp Impaired Gross Range of Motion Lower Extremity ROM Assessment Within Functional Limits Strength Lower Extremity Strength Hip 4-/5 Knee 4-/5 Sensation Assessment Sensation Gross Sensation WNL Muscle Tone Muscle Tone WNL Yes M6 PT-IP Treatment Start: 04/05/22 14:02 Freq: NEEDED Status: Active Protocol: Document 04/13/22 10:31 EFE (Rec: 04/13/22 10:53 [id number]) Physical Therapy Treatment Education Education Provided Precautions,Safety Equipment Issued Equipment Type and Company LSO brace donned when arrived. M7 PT-IP Assessment and Plan Start: 04/05/22 14:02 Freq: NEEDED Status: Active Protocol: Document 04/13/22 10:31 EFE (Rec: 04/13/22 10:53 [id number]) PT Summary Assessment and Plan Potential Rehabilitation Potential Fair Status of Condition at Evaluation Evolving Summary Impairments Pain,ROM,Strength,Balance, Coordination,Sensation,Tone, Cognition,Bed Mobility, Transfers,Gait,Activity Tolerance Assessment Summary Pt still requiring same amount of assist and not making progress with gait or activity tolerance. Appears she has plateaued and is back to baseline. Nursing able to provide assist pt requires. Will consider DC pt from PT. Goals Bed Mobility Goal Contact Guard Assistance Transfer Goal Moderate Assistance,Front Wheeled Walker Gait Goal Moderate Assistance,Front Wheel Walker Gait Distance 50 Other Goals improve bed mobility, transfers and ambulation using FWW 150 ft SBA up/down 13 steps 1 rail SBA Days to Meet Goals 10 Frequency of Treatment Frequency Of Treatment Once a Day Treatment Plan Physical Therapy Treatment Plan Bed Mobility Training,Transfer Training,Gait Training, Therapeutic Exercise,Balance Retraining,Discharge Planning, Hot or Cold Pack,Neuromuscular Re-ed,Coordination Retraining ,Manual Therapy Other Recommendations and Next Treatment bed mob, transfers, gait w/FWW Focus safety techniques. Encouraged to mobilize with nursing with FWW to BSC/bathroom. Precautions Lumbar Precautions Log Roll,No Twisting,Limit Bending,Lifting Restriction of 10 lbs Brace LSO brace Other Precautions Does not follow precautions unless constantly cued Recommendations To Nursing Amount of Assist Needed 1 Person Assist Discharge Recommendations PT Discharge Recommendations Home with 19/09 Assist Available,Home Health,SNF Rehab,LTAC Transportation Needs at Discharge Wheelchair/Cabulance
--- NOTE | 2022-04-13 11:13 | OT.IPNOTE ---
Pt continues to need vc and ANIKA assist for completeness and safety for ADL and mobility needs due to her dementia. Pt appears at her baseline and due to cognitive needs will always need assist for all needs. Discharge pt from OT services, CM,nursing, and hospitalist aware.
--- NOTE | 2022-04-13 11:42 | CM.DPC ---
Addendum entered by Francy Melissa R.N. 04/13/22 16:50: [facility] asst anthony, RYAN David and Marybeth DAVIS came and made their assessment with pt. They have accepted pt and state that they are unable to provide transportation. When this CM asked Joann and Marybeth if they need any paperwork they stated they only need a face sheet. Face sheet printed and given to them by the [facility]. This CM reached out to pt's daughter in law and explained that pt has been accepted to [facility]. Sister in law states tht she needs to speak with Curt as she is concerned that [facility] may not be covered. This CM explained that the assessment was performed and the daily rate was created and that [facility] would not have accepted pt if they were not sure that placement would be covered. Pts Sister in law would rather not transport pt as she is concerned that pt may want to go home with her and will not get out of the car. Plan: Set up other transportation. [facility]. Original Note: DCP: THis CM called and left message with Samy at [facility] admissions at approx 0900 this am with regard to where they might be with acceptance process after reviewing referral that was sent over early afternoon yesterday. Samy called back and spoke with Carmelita LOMBARDO stating that he will be in tomorrow at 1030am to perform an assessment. This CM also reached out to Landy Director at [facility] who states that in order to proceed with acceptance they will need Curt to send over the assessment to them. This CM spoke with Curt Bernstein CM again at [facility] who states that he continues to wait on the financial aspect of the assessment process and he states he has attempted to move the financial process along, Curt sent assessment draft and emailed it to Radha saleh. He called with daily rates after making an adjustment to the assessment per [facility] daily rate of $127.35 and [facility] is $131.25. JAMES Garcia will support with notifying the facilities of the daily rates. Francy Melissa, manager of production
--- NOTE | 2022-04-13 16:19 | CM.DPC ---
OLRANDO continued: Reviewed chart and assisted ORLANDO/Francy at lunch hour. Placed call to all three possible facilities for placement. Spoke with [facility] whom report they can come tomorrow but are unsure they can accept? Also left message with Mary Kay. Called [facility] and spoke with Landy. She reports that she has reviewed state assessment. Provided Landy with rate that was provided to us by [facility]. Landy reports that she is interested. Answered a few questions pertaining to patient's care needs. Landy in agreement to come evaluate patient today for discharge to [facility] tomorrow. Landy did mention that they do not provide transport. Handed off case and above information to ORLANDO/Francy after her lunch taken. P: Welcome Home tomorrow 2-. Left message this afternoon with [facility] to call ORLANDO/Sue in AM with what exact paperwork they will need to accept patient. [place]/Francy reporting that they only need signed orders? BUSINESS SERVICES COORDINATOR route delivery manager requesting that be confirmed with Landy at facility. [place]O/Francy notified Radiation Technician that patient's sister can provide transport to [facility] tomorrow. Francy was going to request 11:00AM. P: D/C to [facility] tomorrow 2-16. LILLIE and Tonja will need to be notified that they will not be needed. SUSSY
[2022-04-13 17:25] VITALS: BP 155/88; PULSE 88; RESP 17; TEMP 36.4; O2SAT 98
[2022-04-13 19:38] VITALS: BP 108/73; PULSE 82; RESP 17; TEMP 36.5; O2SAT 97
[2022-04-14] MEDS: ACETAMINOPHEN 325 MG TABLET 650 MG PO ×2 (02:14→09:34)
[2022-04-14 07:00] VITALS: BP 121/76; PULSE 63; RESP 18; TEMP 36.2; O2SAT 97
--- NOTE | 2022-04-14 09:16 | CM.DPC ---
Addendum entered by Jonna Alvarado R.N. 04/14/22 12:17: [facility]. Let Yolanda in the intake department know about the referral, and let her know that she has [employer], based out of [place], and gave her the name of her primary care provider, she will let her team know, and will call if any additional questions. Addendum entered by Jonna Alvarado R.N. 04/14/22 11:41: Will order [facility] for patient for P.T, and O.T. Checked in with [facility], to see which agency that they normally use, which is [facility]. Completing face to face, will fax over face sheet, orders, face to face, H&P, DC Summary, and P.T. notes. Will follow up with phone call to ensure that they accept insurance, and that they can accept. Addendum entered by Jonna Alvarado R.N. 04/14/22 10:56: Spoke to patient's mvavtq-ul-jxe, Charla. She is aware that patient is going to [facility], time not yet set up. Let her know that since she can't transport, due to patient's dementia, pain, post compression fractures, only way that she could be transported is S. Mentioned the potential cost for patient, for this [place] Bill Recapitulation Clerk called Medicaid transport, and patient has no transportation benefits. Charla indicated that she had spoken to Curt Bernstein, patient's [facility] MARINE STRUCTURAL DESIGNER on the case, and he let her know it would be taken care of. Let her know that this [place] Bill Recapitulation Clerk will call Curt to confirm this. Called Curt Bernstein, and he indicated, her fkicew-[id number] is not financially responsible, for she is not POA, patient most likely would get the bill, but Medicaid would intervene, since most likely the bill would not be paid, he basically indicated, Medicaid would need to take care of it. He is aware that there is no other option other than [facility], to get her safely to [facility]. Landy at [facility] did call back and indicated that she had spoken to Curt Bernstein, finances are approved and taken care of, and set up product picker time of 1500, [facility] was not able to get her picked up sooner. Updated Landy at [facility] of product picker time, and updated hospitalist. Faxed over DC Summary, latest P.T. note, and RX/Med sheets, over to [facility]. Their fax number is: [phone]. Updated white board at main nurses station, and updated nurse, Lillian, gave her report number. Spoke to Charla, patient's [id number]-yuw, is aware of product picker time, and she will bring change of clothes for patient. Original Note: DCP Cont: There was a message on this phone from Landy at [facility]. Message indicated from her was that assessment of finances were not yet finalized from JORGE LUIS Elias MARINE STRUCTURAL DESIGNER. Called Landy back, she was not yet in, asked studio operation engineer to have her call this [place] Bill Recapitulation Clerk back. Also, they do not transport, so arrangements need to be made. Notes indicate, sister not comfortable transporting, she will want to go home. Spoke to JORGE LUIS Stanley MARINE STRUCTURAL DESIGNER working on case and assessment. He indicated that he is attempting to contact Landy this morning so he can move forward, with acceptance on rate. He also mentioned that he would have a provider number by then, and would call this [place] Bill Recapitulation Clerk back. Let him know that this will be needed, since most likely Medicaid transport would need to be set up, and the only way to do this would most likely be S, as patient does have dementia, would not be able to be alone in a taxi, most likely. P: DCP working on discharge for today, will coordinate with [facility]. Have a provider number: [phone]. Spoke to Landy at [facility], she still needs to have financial approval from Curt. Jonna Alvarado RN/Repulping Supervisor
--- NOTE | 2022-04-14 09:24 | PT.IPTN ---
Current Diagnoses Spinal stenosis, lumbar region without neurogenic claudication (04/04/22) Wedge compression fracture of unspecified lumbar vertebra, initial encounter for closed fracture (04/04/22) Physical Therapy Treatment Note M2 PT-IP Current Condition Start: 04/05/22 14:02 Freq: NEEDED Status: Active Protocol: Document 04/14/22 09:00 SP (Rec: 04/14/22 10:39 SP [id number]) Physical Therapy Current Condition Current Condition Evaluation Date 04/05/22 Treatment Diagnosis fall; L3 compression fx; difficulty in walking Onset Date 04/04/22 M3 PT-IP Subjective Start: 04/05/22 14:02 Freq: NEEDED Status: Active Protocol: Document 04/14/22 09:00 SP (Rec: 04/14/22 10:39 SP [id number]) Subjective Physical Therapy Visit Type Type Treatment Note Visit Start Time 09:00 Visit Stop Time 09:24 Total Visit Minutes 24 Notes VItals taken: supine BP 146/90 HR 73 SaO2 100% on RA Post mobility to chair: BP 151 /88 HR 75 Number of SPECIAL PROCEDURES NURSE Visits 3 Physical Therapy Visit Comments Patient Comments Pt reports waiting for pain medication but willing to work with therapy. Therapy Pain Assessment Pain When Pain Assessed During Mobility Pain Present Pain Present Pain Reported Location Lower Back Intensity 8 Scale Used Numeric (0 - 10) Description With Movement Pain Behaviors Facial Grimacing,Restlessness Pain Management Techniques Distraction,Modification of Treatment,Re-positioning M4 PT-IP Mobility and Gait Start: 04/05/22 14:02 Freq: NEEDED Status: Active Protocol: Document 04/14/22 09:00 SP (Rec: 04/14/22 10:39 SP [id number]) PT-Bed Mobility Assessment Supine to Sit Supine to Sit Minimal Assistance,1 Person Assistance,Bedrails Scooting Scooting to Edge of Bed Contact Guard Assistance, Minimal Assistance PT-Transfer Assessment Sit to and From Stand Sit to and from Stand Minimal Assistance,1 Person Assistance,Use of Upper Extremities Equipment Transfer Assistive Device Gait Belt,Front Wheeled Walker Orthotic/Prosthetic Devices or Brace: Yes Transfers Transfer Destination Chair Transfer Technique ambulated w/FWW Transfer Ability Level of Assist Contact Guard Assistance, Minimal Assistance,1 Person Assistance,Use of Upper Extremities Comments Mobility Comments Pt in bed with head of bed elevated 19%. Unable recall precautions, reviewed and provided demonstration for proper technique log roll and small step pivot for no twisting. L R Min A hand over hand cues for use bed rail knees with shoulders>sit Max A for trunk righting and BLEs to EOB. Scoot min A for stability trunk support heavy UE use on bed until feet support on floor. SPECIAL PROCEDURES NURSE ed proper use LSO back brace donning support, pt not understanding how use properly . STS Min A w/ FWW, cues adn hand over hand support proper hand placement throughout tx. Stand step pivot and fully back step transfer bed>chair w / FWW cG/ MIn, stand>sit Min/ Mod A slow sit in chair, scoot back in chair SBA. Pt declined further mobility due to back pain having, stated I am waiting for nurse to bring my pain meds. Pt had call light and all needs in reach and chair alarm donned before left. Gait Assessment Gait Gait Assistance Required: Contact Guard Assist,Minimum Assistance,1 Person Assist Distance (Feet) 3 Assistive Devices Assistive Device Gait Belt,Front Wheeled Walker Orthotic/Prosthetic Devices or Brace: Yes Gait Deviations General Gait Pattern Antalgic,Decreased Stride Length,Decreased Feet Clearance,Step-to Gait Factors Limiting Gait Function Factors Limiting Gait Function Decreased Activity Tolerance, Decreased Strength,Difficulty Following Directions,Pain,Poor Balance,Poor Safety Awareness Comments Gait Comments see mobility comments Stair Climbing Assessment Comments Stair Climbing Comments no stairs to need to assess M5 PT-IP Objective Assessments Start: 04/05/22 14:02 Freq: NEEDED Status: Active Protocol: Document 04/05/22 11:02 AB (Rec: 04/05/22 14:18 AB [id number]) Orientation Orientation/Cognition Level of Alertness Alert Orientation Name Safety Awareness Decreased Safety Awareness Memory Description Short Term Impaired,Fdc Impaired Gross Range of Motion Lower Extremity ROM Assessment Within Functional Limits Strength Lower Extremity Strength Hip 4-/5 Knee 4-/5 Sensation Assessment Sensation Gross Sensation WNL Muscle Tone Muscle Tone WNL Yes M6 PT-IP Treatment Start: 04/05/22 14:02 Freq: NEEDED Status: Active Protocol: Document 04/14/22 09:00 SP (Rec: 04/14/22 10:39 SP [id number]) Physical Therapy Treatment Exercises Exercises Ankle Pumps,Heel Slides Education Education Provided Precautions,Safety Equipment Issued Equipment Type and Company SPECIAL PROCEDURES NURSE assisted pt donning LSO brace on when up to sitting EOB. Was not donnned supine in bed when arrived. M7 PT-IP Assessment and Plan Start: 04/05/22 14:02 Freq: NEEDED Status: Active Protocol: Document 04/14/22 09:00 SP (Rec: 04/14/22 10:39 SP [id number]) PT Summary Assessment and Plan Potential Rehabilitation Potential Fair Status of Condition at Evaluation Evolving Summary Impairments Pain,ROM,Strength,Balance, Coordination,Sensation,Tone, Cognition,Bed Mobility, Transfers,Gait,Activity Tolerance Progress Towards Goals Slow Progress due to Pain,Slow Progress due to Activity Tolerance Assessment Summary Pt required increase physical support during today's tx possible due to pain, pt seems to be more confused requiring Max verbal and physical hand over hand cues for safety proper hand placement, trunk support and sequencing during mobility, fall risk. Will continue to assess progress if pt is close to her baseline. Pt will require SNF for increase strength for functional mobility. Goals Bed Mobility Goal Contact Guard Assistance Transfer Goal Moderate Assistance,Front Wheeled Walker Gait Goal Moderate Assistance,Front Wheel Walker Gait Distance 50 Other Goals improve bed mobility, transfers and ambulation using FWW 150 ft SBA up/down 13 steps 1 rail SBA Days to Meet Goals 10 Frequency of Treatment Frequency Of Treatment Once a Day Treatment Plan Physical Therapy Treatment Plan Bed Mobility Training,Transfer Training,Gait Training, Therapeutic Exercise,Balance Retraining,Discharge Planning, Hot or Cold Pack,Neuromuscular Re-ed,Coordination Retraining ,Manual Therapy Other Recommendations and Next Treatment bed mob, transfers, gait w/FWW Focus safety techniques. Encouraged to mobilize with nursing with FWW to BSC/bathroom. Precautions Lumbar Precautions Log Roll,No Twisting,Limit Bending,Lifting Restriction of 10 lbs Brace LSO brace Other Precautions Does not follow precautions unless constantly cued Recommendations To Nursing Amount of Assist Needed Total Assistance Discharge Recommendations PT Discharge Recommendations Home with 19/09 Assist Available,Home Health,SNF Rehab,LTAC Transportation Needs at Discharge Wheelchair/Cabulance
[2022-04-14] MEDS: LIDOCAINE PATCH 1 EACH ADH..PATCH TOP (09:39)
[2022-04-14] MEDS: POTASSIUM CHLORIDE 20 MEQ TAB PO (09:42)
[2022-04-14] MEDS: GABAPENTIN 300 MG CAPSULE PO (09:42)
[2022-04-14] MEDS: DOCUSATE 100 MG CAPSULE PO (09:44)
[2022-04-14] MEDS: ENOXAPARIN 40 MG/0.4 ML SYRINGE SUBCUT (09:44)
[2022-04-14] MEDS: CHOLECALCIFEROL (VITAMIN D3) 1,000 UNIT TABLET 2000 UNIT PO (09:44)
[2022-04-14] MEDS: FUROSEMIDE 40 MG TABLET PO (09:44)
[2022-04-14] MEDS: CALCIUM CARBONATE 600 MG TABLET PO (10:22)
[2022-04-14] MEDS: CALCITONIN,SALMON, NASAL SPRAY 1 SPRAYS NASAL (10:22)
[2022-04-14] MEDS: MELOXICAM 7.5 MG TABLET PO (10:22)
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
[2022-04-14] MEDS: HYDROCODONE/ACET 5/325 TABLET 1 TAB PO (11:04)
--- NOTE | 2022-04-14 12:53 | PC.NURSE ---
pt aware she is going to another place. pt upset because we told her she cannot take the TV with her. pt thinks it's her own TV. pt said I will rip it out of the wall. This nurse and 2 compliance specialist's tried to explain and orient patient but was ineffective. patient yelling because I would not take down the TV off the wall. provider aware.
[2022-04-14] MEDS: LORazepam 0.5 MG TABLET PO (13:58)
== END 2022-04-14 15:28 | disposition home or self-care (01) ==
LOC: ED 21:42 → AC 21:53
PROVIDERS: Admitting Provider Nurse Practitioner Family; Emergency Provider Emergency Medicine; PCP Physician Assistant; Referring Provider Emergency Medicine; Visit Provider Nurse Practitioner Family
DX: S32.030A Wedge compression fracture of third lumbar vertebra, initial encounter for closed fracture (principal); M48.061 Spinal stenosis, lumbar region without neurogenic claudication; F03.90 Unspecified dementia, unspecified severity, without behavioral disturbance, psychotic disturbance, mood disturbance, and anxiety; W19.XXXA Unspecified fall, initial encounter; Y92.009 Unspecified place in unspecified non-institutional (private) residence as the place of occurrence of the external cause; M81.0 Age-related osteoporosis without current pathological fracture; R53.1 Weakness; Z20.822 Contact with and (suspected) exposure to COVID-19
CPT/HCPCS: 36415; 71045; 72131; 72148; 72192; 80053; 81003; 81015; 82550; 82553; 83605; 83690; 83735; 83880; 84484; 85025; 85610; 87635; 96360; 96361; 96372; 97110; 97116; 97162; 97166; 97530; 97535; 99284; C9803; G0378; J1650